=== PATIENT | female | born 1975 | race Caucasian/White ===

== ENCOUNTER → 2022-06-13 | Outpatient (CLI) | payer MEDICAID, SELFPAY ==
--- NOTE | 2022-06-13 11:15 | RAD_ITS ---
INDICATION: CERVICAL DEGENERATION EXAMINATION/TECHNIQUE: X-RAY - XR Spine Cervical 2 or 3 Views COMPARISON: None. FINDINGS: VERTEBRAE: Preserved vertebral body height. No fracture. Straightening of the normal cervical lordosis. C2-3: 3 mm anterolisthesis. Facet arthrosis. C4-5: Marked disc space narrowing. 2 mm retrolisthesis. C6-7: Moderate disc space narrowing. NECK SOFT TISSUES: No prevertebral soft tissue widening. LUNG APICES: Clear. RAD/Cerv Spine 2 or 3 Views IMPRESSION: No demonstrated fracture. Listhesis at C2-3 and C4-5. Mild degenerative changes noted above. Electronically Signed: Mary Walls MD at 23:56 EST Reading Location ID and State: [id number] / Tel , Service support ,
== END | disposition home or self-care (01) ==
LOC: RAD 11:13
PROVIDERS: PCP Student in an Organized Health Care Education/Training Program; Referring Provider Anesthesiology Pain Medicine; Visit Provider Anesthesiology Pain Medicine
DX: M50.30 Other cervical disc degeneration, unspecified cervical region (principal)
CPT/HCPCS: 72040

== ENCOUNTER → 2022-09-05 | Outpatient (CLI) | payer OTHER, MEDICAID, SELFPAY ==
--- NOTE | 2022-09-05 12:33 | US_ITS ---
INDICATION: LOW TSH LEVEL EXAMINATION: Ultrasound US Thyroid (eg thyroid, parathyroid, parotid) TECHNIQUE: Agosto scale and color doppler imaging was performed of the thyroid gland. COMPARISON: None. FINDINGS: RIGHT THYROID LOBE: 5.0 x 2.0 x 2.1 cm. Homogeneous echotexture with normal vascularity. [Within the upper/mid pole there is a 1.3 x 1.0 x 0.9 cm complex nodule with internal vascularity and no apparent microcalcifications. There is an additional complex nodule within the midpole measuring 1.2 x 0.8 x 0.9 cm with minimal peripheral vascularity. There is a 1.2 x 0.6 x 1.0 cm complex nodule within the right lobe as well with minimal internal vascularity. LEFT THYROID LOBE: 4.0 x 1.9 x 2.0 cm. Homogeneous echotexture with normal vascularity. [There is a solid 2.3 x 1.7 x 1.9 cm nodule with internal vascularity. ISTHMUS: 0.38 cm. No thyroid nodules are present. US/Thyroid IMPRESSION: Bilateral nodules measuring up to 2.3 x 1.7 x 1.9 cm on the left. Electronically Signed: Payal Jorgensen MD at 13:37 EST ,
== END | disposition home or self-care (01) ==
LOC: US 12:32
PROVIDERS: PCP Student in an Organized Health Care Education/Training Program; Referring Provider Student in an Organized Health Care Education/Training Program; Visit Provider Student in an Organized Health Care Education/Training Program
DX: R79.89 Other specified abnormal findings of blood chemistry (principal)
CPT/HCPCS: 76536

== ENCOUNTER → 2022-10-18 | Outpatient (CLI) | payer OTHER, MEDICAID, SELFPAY ==
--- NOTE | 2022-10-18 | FLU_PTH ---
PATIENT: KIMBERLY STEPHENS LOC: [facility] U#:[id number] AGE/SX: 47/F ROOM: RE10/18/[address]: Dr. Hesham Holloway MD : 1975 BED: DIS: 10/18/2022 SPEC #: [id number] RECD: 10/18/22 13:14 STATUS: LEANNE REBenjamin #: [id number] RADHA: 10/18/22 00:[address]: Hesham Holloway DEPT: CYTOLOGY RECD BY: Martín Rubio ENTERED: 10/18/22 13:15 SP TYPE: Fluid OTHR DR: Dr. Jai Posada, DO Tissues: A - THORACIC FLUID B - THORACIC FLUID Procedures: Special Stain Group II Surgery Specimen Level IV Cytospin Fluid HEADER OPERATION: Fine needle aspiration left thyroid PRE-OP DIAGNOSIS: Abnormal thyroid ultrasound TISSUE SUBMITTED: A ? Left thyroid nodule fluid, B ? Left thyroid nodule slides x12 DIAGNOSIS CYTOLOGY A. Fine needle aspiration, left thyroid lobe nodule fluid (cytospin and cell block): Consistent with benign follicular nodule ([place] Category II). See comment. B. Fine needle aspiration, left thyroid lobe nodule (smears): Consistent with benign follicular nodule ([place] Category II). See comment. AM:awilda 10/19/2022 COMMENT A & B. The [place] System for thyroid diagnostic categorization was used in the evaluation of this case. The specimen is adequate for evaluation. CYTOLOGY STUDY Slides are reviewed. CYTOLOGY GROSS A - Received is 30 ml of dark brown cloudy fluid labeled with the patient's name and and designated per the requisition as left thyroid. Submitted for cytology preparation including cell block. B - Received are 12 smears labeled with the patient's name and designated per the requisition as left thyroid. Submitted for staining. / awilda 10/18/2022 TC:5 CPT: 88504 x2, 60513
== END | disposition home or self-care (01) ==
LOC: LABSPEC 12:31
PROVIDERS: PCP Student in an Organized Health Care Education/Training Program; Referring Provider Surgery; Visit Provider Surgery
DX: R94.6 Abnormal results of thyroid function studies (principal)
CPT/HCPCS: 88108; 88305; 88313

== ENCOUNTER 2023-04-13 07:15 | Day surgery (SDC) | payer OTHER, MEDICAID, SELFPAY ==
--- NOTE | 2023-04-13 | GASB_PTH ---
PATIENT: KIMBERLY STEPHENS LOC: [facility] U#:[id number] AGE/SX: 48/F ROOM: RE04/13/[address]: Dr. Saw Bruno MD : 1975 BED: DIS: 04/13/2023 SPEC #: [id number] RECD: 04/13/23 14:46 STATUS: LEANNE JOHNSON #: [id number] RADHA: 04/13/23 00:[address]: Saw Bruno DEPT: SURGICAL PATHOLOGY RECD BY: Martín Rubio ENTERED: 04/14/23 08:50 SP TYPE: Gastric Bx OTHR DR: Dr. Jai Posada DO Tissues: A - Duodenum, NOS B - Gastric mucous membrane C - Stomach, NOS D - Gastric mucous membrane E - Gastric mucous membrane Procedures: Special Stain Group II Surgery Specimen Level IV Alcian Blue/PAS (control) HEADER OPERATION: Colonoscopy, EGD, PH probe placement, biopsy PRE-OP DIAGNOSIS: GERD, screening TISSUE SUBMITTED: A - Duodenal bulb mucosa biopsy, B - Antrum biopsy for H. pylori and path, C - Greater curvature plaque biopsy, D - Gastric body polyp biopsy, E - Z-line biopsy MICROSCOPIC DIAGNOSIS A. Duodenal bulb, biopsy: Fragments of duodenal mucosa with mild Yanet gland hyperplasia. B. Antrum, biopsy: Mild gastritis. See microscopic description and comment. C. Greater curvature plaque, biopsy: Mild gastritis. See microscopic description. D. Gastric body polyp, biopsy: Mild gastritis. See microscopic description. E. Z-line biopsy: Fragments of gastroesophageal mucosa with chronic inflammation. Intestinal metaplasia (goblet cell metaplasia) not identified. See comment. SJ:awilda 04/17/2023 COMMENT B. The results of immunohistochemistry for Helicobacter pylori will be reported separately ([id number]). E. Alcian blue/PAS stain with matched control is used in the evaluation of the specimen. MICROSCOPIC DESCRIPTION Slides are reviewed. B. The specimen shows fragments of gastric mucosa with chronic inflammatory cell infiltrates in the lamina propria consisting of lymphocytes and plasma cells, consistent with mild chronic gastritis. C & D. The specimen shows fragments of gastric mucosa with chronic inflammatory cell infiltrates in the lamina propria consisting of lymphocytes and plasma cells, consistent with mild chronic gastritis. Focal mucosal congestion is also noted. GROSS DESCRIPTION A - Received in fixative is one container labeled with the patient's name and designated duodenal bulb mucosal biopsy. The specimen consists of multiple irregular fragments of light galvan soft tissue that in aggregate measure 0.3 x 0.3 x 0.1 cm. The specimen is totally submitted in one cassette. B - Received in fixative is one container labeled with the patient's name and designated antrum biopsy. The specimen consists of two irregular fragments of light galvan soft tissue that in aggregate measure 0.6 x 0.3 x 0.1 cm. The specimen is totally submitted in one cassette. C - Received in fixative is one container labeled with the patient's name and designated greater curvature plaque biopsy. The specimen consists of two irregular fragments of light galvan soft tissue that in aggregate measure 0.5 x 0.3 x 0.1 cm. The specimen is totally submitted in one cassette. D - Received in fixative is one container labeled with the patient's name and designated gastric body polyp. The specimen consists of two irregular fragments of light galvan soft tissue that in aggregate measure 0.8 x 0.3 x 0.1 cm. The specimen is totally submitted in one cassette. E - Received in fixative is one container labeled with the patient's name and designated Z-line biopsy. The specimen consists of two irregular fragments of light galvan soft tissue that in aggregate measure 0.6 x 0.3 x 0.1 cm. The specimen is totally submitted in one cassette. / SJ:rg 04/14/2023 :3 [facility]: [id number] x5, [id number]
[2023-04-13 07:45] VITALS: BP 130/78; PULSE 85; RESP 16; TEMP 36.8; O2SAT 99; BMI 27.9
[2023-04-13] MEDS: Lactated Ringers 1,000 ML 15 ML IV (07:47)
--- NOTE | 2023-04-13 08:30 | IMM_PTH ---
PATIENT: KIMBERLY STEPHENS LOC: [facility] U#:[id number] AGE/SX: 48/F ROOM: RE04/13/[address]: Dr. Saw Bruno MD : 1975 BED: DIS: 04/13/2023 SPEC #: [id number] RECD: 04/14/23 14:07 STATUS: LEANNE REBenjamin #: [id number] RADHA: 04/13/23 08:[address]: Saw Bruno DEPT: IMMUNOHISTOCHEMISTRY RECD BY: Adri Mullins ENTERED: 04/14/23 14:07 SP TYPE: IMMUNO OTHR DR: Dr. Jai Posada DO Tissues: B - Stomach, NOS Procedures: H Pylori (initial) PHYSICIAN & INSTITUTION [place] [id number] SPECIMEN INFORMATION: Tissue Source: B - Antrum biopsy Clinical Info: Screening, GERD Specimen Number: [id number] CPT code: 37676 METHODOLOGY: Deparaffinized sections of prefer/formalin-fixed tissue or PAP/DQ stained slides are incubated with monoclonal/polyclonal antibodies/oligonucleotide probes. Localization is made via biotin free immunoperoxidase method. Appropriate controls are performed and reacted as expected. Results on target cell population are indicated in the following table: RESULTS: ANTIBODY / CLONE RESULT Block B H Pylori (polyclonal) negative These tests were developed and their performance characteristics determined by [facility]. They may not have been cleared or approved by the U.S. Food and Drug Administration. The FDA has determined that such clearance or approval is not necessary. The above immunohistochemical/dualISH markers are ordered and reviewed by the Pathologist. INTERPRETATION: B. Antrum, biopsy: Negative for Helicobacter pylori organisms. SJ:awilda 04/17/2023
--- NOTE | 2023-04-13 09:09 | HP.PCM_ITS ---
History and Physical Date of Admission: 04/13/23 Date of Service: 02/21/23 MR#: [id number] Acct: [id number] Name: KIMBERLY BENJAMIN Rep #: [id number] : 1975 Provider: Dr. Saw Bruno MD Age/Sex: 47/F Location: [facility] Status: Signed Intake Vital Signs 02/21/2310:00 Height 5 ft 3 in Weight: 162 lb BMI 28.7 BP 145/79 H Blood Pressure Location Rt brachial Position Sitting Respiration 18 Pulse 74 Pulse Source Monitor Pulse Oximetry (%) 98 Oxygen Delivery Method room air Intake Visit Reasons: ACID REFLUX Chief Complaint: acid reflux Allergies Seasonal Allergies: Uncoded Allergy (Mild, Verified 02/21/23 10:03) SOB Medications ascorbate calcium (vitamin C) 500 mg tablet 500 mg PO DAILY 02/21/23 [History Confirmed 02/21/23] cinnamon bark 500 mg capsule (Cinnamon) 500 mg PO DAILY 02/21/23 [History Confirmed 02/21/23] cyclobenzaprine 10 mg tablet 10 mg PO TID 02/21/23 [History Confirmed 02/21/23] famotidine 20 mg tablet (Pepcid) 20 mg PO DAILY 02/21/23 [History Confirmed 02/21/23] furosemide 20 mg tablet (Lasix) 20 mg PO BID 02/21/23 [History Confirmed 02/21/23] golimumab 50 mg/0.5 mL subcutaneous pen injector (Simponi) 50 mg subcut QMONTH 02/21/23 [History Confirmed 02/21/23] hydrochlorothiazide 12.5 mg tablet 12.5 mg PO BID 02/21/23 [History Confirmed 02/21/23] hydroxychloroquine 200 mg tablet (Plaquenil) 200 mg PO DAILY 02/21/23 [History Confirmed 02/21/23] ipratropium 0.5 mg-albuterol 3 mg (2.5 mg base)/3 mL nebulization soln 3 ml inhalation 6XD 02/21/23 [History Confirmed 02/21/23] leflunomide 20 mg tablet (Arava) 20 mg PO DAILY 02/21/23 [History Confirmed 02/21/23] losartan 50 mg tablet 50 mg PO BID 02/21/23 [History Confirmed 02/21/23] meloxicam 15 mg tablet 15 mg PO DAILY 02/21/23 [History Confirmed 02/21/23] metoprolol succinate 100 mg tablet,extended release 24 hr (Toprol XL) 100 mg PO DAILY 02/21/23 [History Confirmed 02/21/23] mometasone-formoterol HFA 200 mcg-5 mcg/actuation aerosol inhaler (Dulera) 2 puff inhalation BID 02/21/23 [History Confirmed 02/21/23] montelukast 10 mg tablet (Singulair) 10 mg PO DAILY 02/21/23 [History Confirmed 02/21/23] pantoprazole 40 mg tablet,delayed release (Protonix) 40 mg PO DAILY 02/21/23 [History Confirmed 02/21/23] potassium chloride 10 mEq capsule,extended release 10 meq PO DAILY 02/21/23 [History Confirmed 02/21/23] pseudoephedrine-guaifenesin ER 60 mg-600 mg tablet,extend release 12hr (Mucinex D) 1 tab PO BID PRN 02/21/23 [History Confirmed 02/21/23] sucralfate 1 gram tablet (Carafate) 1 g PO QACHS 02/21/23 [History Confirmed 02/21/23] PFSH Medical History (Updated 02/21/23 @ 13:[address] Saw Bruno MD) Acid reflux Asthma Physical exam, pre-employment Post hysterectomy menopause Surgical History (Updated 02/21/23 @ 10:00 by Jessa Dwyer) History of appendectomy Total knee replacement status Social History (Updated 02/21/23 @ 10:00 by Jessa Dwyer) Smoking Status: Current every day smoker HPI HPI HPI: Patient is a 47-year-old female who presents for evaluation of disturbing/intractable reflux symptoms. They are referred for surgical consultation from Mrs. Ethel Arthur NP. Patient states that her symptoms are particularly troubling at night. She states initially she was able to get relief with taking a proton pump inhibitor, but her symptoms progressed significantly following a COVID infection last February and she has not been able to get the same relief despite taking Protonix 40 mg twice daily. And although she states her symptoms are primarily at night, she does notice some few breakthrough episodes during the daytime. Associated with this reflux?which she describes as a foul taste on awakening occasional aspiration events that awaken her out of sleep, she notes some associated swallowing difficulty, bloating, nausea, and diarrhea. Ms. Benjamin swallowing difficulty as described in relation to food and drink alike and is sporadic in its onset as well as nonprogressive. She reports that her bloating, nausea, and diarrhea all accompany her reflux episodes and she describes her diarrhea as fiery. When she has these episodes she will take Maalox, Pepcid, and Carafate up to 4 times a day without significant relief. In addition to these medications, Ms. Benjamin has been briefed on lifestyle changes to consider to reduce her symptoms and has made many of these changes. She discusses a 90 pound intentional weight loss over the last 1.5 years that she has achieved through working with a workplace trainer and assessor and counting macros. She also reports that she sleeps propped up. She does not routinely ingest caffeine, but occasionally will have some chocolate. She has cut out all spicy foods. She does admit to having unusual waking hours and oftentimes eats within 30 minutes of bedtime because of her work schedule. Patient reports a prior work-up through the [facility] for this issue inclusive of possibly 2 prior swallow studies and an EGD in 2016 that identified a hiatal hernia. Ms. Benjamin states regarding the swallow study that she was told there was an unusual retention of food in her stomach so this was followed up with a second test (gastric emptying?) That was read as normal. Ms. Benjamin states that she has always declined offers for colonoscopies in the past because she is reluctant to undergo procedures after having a sedation issue during a tonsil procedure as a child. Ms. Benjamin reports that her bowels move regularly with a frequency of 3-4 times daily. She does not regularly experience constipation or diarrhea. She denies any bloody or dark stools. She does confirm a history of hemorrhoids which began with the of her son. She notes that they seldom flare and usually these flares were associated with a soreness. As a part of patient's counting macros and dietary changes, she takes a substantial amount of fiber with her daily diet but does not supplement her diet. She denies any family history of inflammatory bowel disease, diverticulitis, or colon cancer. ROS General General: No weight change, appetite, fatigue, colon cancer, breast cancer or weakness HEENT HEENT: Yes difficulty swallowing; No eye injury, eye surgery, swollen glands or hoarseness Endo Endocrine: No thyroid disease, diabetes mellitus, thyroid cancer, Hair loss, heat intolerance or cold intolerance Skin Skin: No rash or changing moles Breast Breast: No left breast lump, right breast lump, nipple discharge, breast pain, abnormal mammogram, abnormal US or breast enlargement Musc Musculoskeletal: Yes back problems, arthritis and rheumatoid arthritis; No gout or joint pain Cardio Cardiovascular: Yes high blood pressure; No murmur, pacemaker, heart disease, atrial fibrillation, heart attack, heart stent, palpitations, shortness of breat with exertion or chest pain Psych Psychiatric: No depression, anxiety or hearing voices Resp Respiratory: No shortness of breath, No sleep apnea, Yes cough, No COPD, Yes asthma, No emphysema and No wheezing Gastro Gastrointestinal: No abdominal pain, Yes nausea or vomiting, Yes diarrhea, No constipation, No blood in stool, Yes acid reflux, Yes hemorrhoids, No ulcers, No gallbladder problem and No black,tarry stools Devante Hematologic: No blood thinners, No blood disorders, No bleeding, No anemia and No blood clots Neuro Neurologic: No system reviewed and no additional complaints, except as documented, No as per HPI, No abnormal gait, No abnormal hearing, No abnormal movements, No abnormal speech, No behavioral changes, No burning sensations, No confusion, No convulsions, No disequilibrium, No dizziness, No localized weakness, No frequent falls, No headache(s), No lack of coordination, No loss of vision, No memory loss, Yes numbness, No other visual disturbances, No radicular pain, No restless legs, No sensory deficit, No syncope, Yes tingling, No tremor(s), No weakness and No other Exam Const General: cooperative, comfortable, no acute distress and well developed Resp Effort & Inspection: normal respiratory effort Auscultation: no rales, no rhonchi and no wheezes Cardio Rate: regular rate Rhythm: regular rhythm Heart Sounds: click (Midsystolic) GI Other: No significant scarring, nondistended, soft, nontender to palpation x4 quadrants. No palpable hernia. Assessment and Plan Assessment and Plan (1) Acid reflux: Status: Chronic Comment: This is a 47-year-old female who makes her for surgical consultation related to intractable reflux symptoms that began not responding to medical therapy 11 months ago with a COVID diagnosis. Patient reports prior work-up with swallow studies and EGD done through [facility], but these results are not immediately available. She states that she is currently using Protonix 40 mg twice daily as well as Pepcid, Maalox, and Carafate when she experiences episodes of reflux. Overall she has worked to modify her behavioral factors and even lost 90 pounds in the last 1.5 years through intentional weight loss. Still, I have identified that she is eating and retiring to bed far too soon then would be recommended (within half hour). I have asked her to work on this issue, and in the meantime we will begin obtaining her records from the outside system. I would like to plan for repeat EGD with pH probe placement. Additionally, patient has never had prior colonoscopy so we will look to perform this concurrently. Plan: EGD with pH probe placement. Patient will require holding of her PPI in anticipation of this procedure. Patient informed that she will require a hire car driver the day of the procedure. (2) Screening for colon cancer: Status: Acute Comment: Patient at average risk for colon cancer who is 47 and never had prior colonoscopy. Planning for repeat EGD and given patient's need for screening colonoscopy, have advised her to pursue this concurrently. Patient is initially reluctant, but ultimately accepts this recommendation. We will plan for standard split prep. Plan: Plan will be to complete colonoscopy (and EGD) on first mutually agreeable date under local MAC. Pre-procedure prep discussed and paper instructions provided. Patient is also made aware that she will need to have a hire car driver with her the day of the procedure. I have examined the patient the following changes are noted: Patient reports that she has had actually less reflux since going off of her Protonix in anticipation of today's pH probe placement. She also reports some presyncope related to her bowel prep, but states that she feels better today and believes that that was due to hypoglycemia as her symptoms resolved quickly with ingestion of a popsicle. She otherwise denies changes. She has no further questions. Therefore we will proceed with EGD and colonoscopy as discussed above.
[2023-04-13 10:10] VITALS: BP 130/78; BP 99/62; PULSE 97; RESP 18; TEMP 36.3; O2SAT 97
[2023-04-13 10:15] VITALS: BP 107/69; BP 130/78; PULSE 96; RESP 18; O2SAT 97
[2023-04-13 10:20] VITALS: BP 117/68; BP 130/78; PULSE 85; RESP 18; O2SAT 96
--- NOTE | 2023-04-13 10:21 | OP.CCLET_ITS ---
04/13/2023 Jai Posada [address] [place] [address] Re : Upper GI endoscopy procedure for Michelle Benjamin Dear Dr. Posada This procedure was performed on March. My impressions and recommendations are as follows: Impressions : - Friable duodenal mucosa. Biopsied. - Erythematous mucosa in the antrum. Biopsied. - A few spots with no stigmata of recent bleeding in the stomach. Biopsied. - A few gastric polyps. Biopsied. - Gastroesophageal flap valve classified as Hill Grade IV (no fold, wide open lumen, hiatal hernia present). No specimens collected. - 2 cm hiatal hernia. No specimens collected. - Z-line regular, 35 cm from the incisors. Biopsied. - The examination was otherwise normal. - Normal mucosa was found in the entire esophagus. - The CARRASCO pH capsule was deployed. Recommendations : - Discharge patient to home (via wheelchair). - Resume previous diet today. - Await pathology results. - Telephone my office for pathology results in 1 week. - Continue present medications. My findings are described in the full procedure note, which is enclosed. If I can be of further assistance, please feel free to contact me at Doctor phone number(s): , Work: . Sincerely, Saw Bruno MD 04/13/2023 10:21:07 AM This report has been signed electronically.
--- NOTE | 2023-04-13 10:21 | OP.EGD_ITS ---
Patient Name: Michelle Benjamin Procedure Date: 04/13/2023 8:58 AM Date of : 1975 Age: 48 Procedure: Upper GI endoscopy Indications: Dysphagia, Heartburn, Esophageal reflux symptoms that persist despite appropriate therapy Providers: Saw Bruno MD Referring MD: Jai Posada Medicines: See the Anesthesia note for documentation of the administered medications Patient Profile: Refer to note in patient chart for documentation of history and physical. Complications: No immediate complications. Estimated blood loss: Minimal. Procedure: Pre-Anesthesia Assessment: - The heart rate, respiratory rate, oxygen saturations, blood pressure, adequacy of pulmonary ventilation, and response to care were monitored throughout the procedure. After obtaining informed consent, the endoscope was passed under direct vision. Throughout the procedure, the patient's blood pressure, pulse, and oxygen saturations were monitored continuously. The Endoscope was introduced through the mouth, and advanced to the second part of duodenum. The upper GI endoscopy was somewhat difficult due to the patient's discomfort during the procedure. Successful completion of the procedure was aided by increasing the dose of sedation medication. The patient tolerated the procedure well. Scope In: 9:14:11 AM Scope Out: 9:40:15 AM Total Procedure Duration Time 0 hours 26 minutes 4 seconds Findings: Localized mildly friable mucosa without active bleeding was found in the duodenal bulb. Biopsies were taken with a cold forceps for histology. Estimated blood loss was minimal. Diffuse mildly erythematous mucosa without bleeding was found in the gastric antrum. Estimated blood loss was minimal. Biopsies were taken with a cold forceps for histology. A few localized spots with no stigmata of recent bleeding were found on the greater curvature of the stomach and in the stomach. Biopsies were taken with a cold forceps for histology. Estimated blood loss was minimal. A few 3 mm semi-sessile polyps with no bleeding and no stigmata of recent bleeding were found in the gastric body. Biopsies were taken with a cold forceps for histology. Estimated blood loss was minimal. The gastroesophageal flap valve was visualized endoscopically and classified as Hill Grade IV (no fold, wide open lumen, hiatal hernia present). No biopsies or other specimens were collected for this exam. A 2 cm hiatal hernia was present. No biopsies or other specimens were collected for this exam. The Z-line was regular and was found 35 cm from the incisors. Biopsies were taken with a cold forceps for histology. Estimated blood loss was minimal. The exam was otherwise without abnormality. Normal mucosa was found in the entire esophagus. The CARRASCO capsule with delivery system was introduced through the mouth and advanced into the esophagus, such that the CARRASCO pH capsule was positioned 29 cm from the incisors, which was 6 cm proximal to the GE junction. The CARRASCO pH capsule was then deployed and attached to the esophageal mucosa. The delivery system was then withdrawn. Endoscopy was utilized for probe placement and diagnostic evaluation. Impression: - Friable duodenal mucosa. Biopsied. - Erythematous mucosa in the antrum. Biopsied. - A few spots with no stigmata of recent bleeding in the stomach. Biopsied. - A few gastric polyps. Biopsied. - Gastroesophageal flap valve classified as Hill Grade IV (no fold, wide open lumen, hiatal hernia present). No specimens collected. - 2 cm hiatal hernia. No specimens collected. - Z-line regular, 35 cm from the incisors. Biopsied. - The examination was otherwise normal. - Normal mucosa was found in the entire esophagus. - The CARRASCO pH capsule was deployed. Recommendation: - Discharge patient to home (via wheelchair). - Resume previous diet today. - Await pathology results. - Telephone my office for pathology results in 1 week. - Continue present medications. Procedure Code(s): --- Professional --- 15592, Esophagogastroduodenoscopy, flexible, transoral; with biopsy, single or multiple Diagnosis Code(s): --- Professional --- K31.89, Other diseases of stomach and duodenum K31.7, Polyp of stomach and duodenum K44.9, Diaphragmatic hernia without obstruction or gangrene R13.10, Dysphagia, unspecified R12, Heartburn K21.9, Gastro-esophageal reflux disease without esophagitis CPT copyright 2021 [employer]. All rights reserved. The codes documented in this report are preliminary and upon dry cell sealer review may be revised to meet current compliance requirements. Saw Bruno MD 04/13/2023 10:21:07 AM This report has been signed electronically. Number of Addenda: 0 Note Initiated On: 04/13/2023 8:58 AM
[2023-04-13 10:25] VITALS: BP 109/64; BP 130/78; PULSE 84; RESP 18; TEMP 36.1; O2SAT 96
--- NOTE | 2023-04-13 10:28 | OP.COLON_ITS ---
Patient Name: Michelle Benjamin Procedure Date: 04/13/2023 9:40 AM Date of : 1975 Age: 48 Procedure: Colonoscopy Indications: Screening for colorectal malignant neoplasm Providers: Saw Bruno MD Referring MD: Jai Posada Medicines: See the Anesthesia note for documentation of the administered medications Patient Profile: Refer to note in patient chart for documentation of history and physical. Last Colonoscopy: none. The patient's first colonoscopy is today. Complications: No immediate complications. Estimated blood loss: None. Procedure: Pre-Anesthesia Assessment: - The heart rate, respiratory rate, oxygen saturations, blood pressure, adequacy of pulmonary ventilation, and response to care were monitored throughout the procedure. After I obtained informed consent, the scope was passed under direct vision. Throughout the procedure, the patient's blood pressure, pulse, and oxygen saturations were monitored continuously. The colonoscope was introduced through the anus and advanced to the cecum, identified by appendiceal orifice and ileocecal valve. The colonoscopy was performed without difficulty. The patient tolerated the procedure well. The quality of the bowel preparation was adequate to identify polyps greater than 5 mm in size. Scope In: 9:44:30 AM Scope Withdrawal Time 0 hours 11 minutes 3 seconds Scope Out: 10:05:10 AM Total Procedure Duration Time 0 hours 20 minutes 40 seconds Findings: Skin tags were found on perianal exam. A few small-mouthed diverticula were found in the sigmoid colon. The retroflexed view of the distal rectum and anal verge was normal and showed no anal or rectal abnormalities. Impression: - Perianal skin tags found on perianal exam. - Diverticulosis in the sigmoid colon. - The distal rectum and anal verge are normal on retroflexion view. - No specimens collected. Recommendation: - Discharge patient to home (via wheelchair). - High fiber diet today. - Continue present medications. - Continue present medications. - Repeat colonoscopy in 10 years for screening purposes. - Telephone my office for study results in 1 week. Procedure Code(s): --- Professional --- G0121, Colorectal cancer screening; colonoscopy on individual not meeting criteria for high risk Diagnosis Code(s): --- Professional --- Z12.11, Encounter for screening for malignant neoplasm of colon K64.4, Residual hemorrhoidal skin tags K57.30, Diverticulosis of large intestine without perforation or abscess without bleeding CPT copyright 2021 [employer]. All rights reserved. The codes documented in this report are preliminary and upon fish stringer assembler review may be revised to meet current compliance requirements. Saw Bruno MD 04/13/2023 10:27:47 AM This report has been signed electronically. Number of Addenda: 0 Note Initiated On: 04/13/2023 9:40 AM
--- NOTE | 2023-04-13 10:28 | OP.CCLET_ITS ---
04/13/2023 Jai Posada [address] [place] [address] Re : Colonoscopy procedure for Michelle Benjamin Dear Dr. Posada This procedure was performed on March. My impressions and recommendations are as follows: Impressions : - Perianal skin tags found on perianal exam. - Diverticulosis in the sigmoid colon. - The distal rectum and anal verge are normal on retroflexion view. - No specimens collected. Recommendations : - Discharge patient to home (via wheelchair). - High fiber diet today. - Continue present medications. - Continue present medications. - Repeat colonoscopy in 10 years for screening purposes. - Telephone my office for study results in 1 week. My findings are described in the full procedure note, which is enclosed. If I can be of further assistance, please feel free to contact me at Doctor phone number(s): , Work: . Sincerely, Saw Bruno MD 04/13/2023 10:27:47 AM This report has been signed electronically.
[2023-04-13 10:36] VITALS: BP 130/78
== END 2023-04-13 10:54 | disposition home or self-care (01) ==
LOC: EN 07:17 → AC 07:19
PROVIDERS: PCP Student in an Organized Health Care Education/Training Program; Referring Provider Student in an Organized Health Care Education/Training Program; Visit Provider Surgery
PROC: 0DJD8ZZ Inspection of Lower Intestinal Tract, Via Natural or Artificial Opening Endoscopic (ICD-10-PCS; CPT 45378; principal; 2023-04-13 08:25)
DX: Z12.11 Encounter for screening for malignant neoplasm of colon (principal); K44.9 Diaphragmatic hernia without obstruction or gangrene; K57.30 Diverticulosis of large intestine without perforation or abscess without bleeding; K21.9 Gastro-esophageal reflux disease without esophagitis; K64.4 Residual hemorrhoidal skin tags; F17.200 Nicotine dependence, unspecified, uncomplicated; J45.909 Unspecified asthma, uncomplicated; K29.70 Gastritis, unspecified, without bleeding; K31.89 Other diseases of stomach and duodenum; I10 Essential (primary) hypertension; Z79.899 Other long term (current) drug therapy
CPT/HCPCS: G0121; 43239; 88305; 88313; 88342; J7120; J2405

== ENCOUNTER → 2023-08-11 | Outpatient (CLI) | payer OTHER, SELFPAY ==
--- NOTE | 2023-08-11 08:37 | RAD_ITS ---
STUDY: AIR CONTRAST UPPER GI SERIES and esophagram REASON FOR EXAM: Female, 48 years old. K21.9 - Gastro-esophageal reflux disease without esophagitis FLUOROSCOPY TIME (if supplied): (1 minute and one second) minutes/seconds. 38.48 mGy TECHNIQUE: Double CONTRAST AND AIR CONTRAST FLUOROSCOPIC IMAGES. COMPARISON: None. FINDINGS: The cervical esophagus demonstrates normal motility without aspiration. There is no stricture or extrinsic mass effect. No intraluminal polypoid mass is identified. The thoracic esophagus distends well without stricture or mucosal fold thickening. No mucosal ulcerations are identified. There is no extrinsic mass effect. There are no diverticula. No hiatal hernia or gastroesophageal reflux was identified. The stomach distends well without mucosal fold thickening or mucosal ulceration. There is no intraluminal mass. The duodenal bulb is freely distensible without deformity or ulceration. The duodenal sweep is normal in position and caliber. RAD/Upper GI w/BA Swallow IMPRESSION: Normal air-contrast upper GI and esophageal series. Electronically Signed: Shakir Valles MD at 10:56 EST ,
== END | disposition home or self-care (01) ==
PROVIDERS: PCP Student in an Organized Health Care Education/Training Program; Referring Provider Surgery; Visit Provider Surgery
DX: K21.9 Gastro-esophageal reflux disease without esophagitis (principal); K44.9 Diaphragmatic hernia without obstruction or gangrene
CPT/HCPCS: 74246

== ENCOUNTER → 2023-08-17 | Outpatient (CLI) | payer OTHER, SELFPAY ==
--- NOTE | 2023-08-17 09:57 | NM_ITS ---
CLINICAL: 48-year-old female with history of abdominal bloating and gastroesophageal reflux. SEMI-SOLID PHASE 99m Tc SULFUR COLLOID GASTRIC EMPTYING STUDY COMPARISON: None available FINDINGS: The patient was administered 1.0 mCi of 99m Tc sulfur colloid mixed with oatmeal and consumed per os. Image acquisitions in the anterior-posterior projections were obtained for 60 minutes. There is prompt visualization of the stomach. There is no gastroesophageal reflux identified. The T ? raw data emptying was calculated to be 39.88 minutes, (Normal: 12-56 minutes). NM/Gastric Emptying Study IMPRESSION: 1. NORMAL 99m Tc sulfur colloid semi-solid phase (oatmeal) gastric emptying imaging examination. A. There is normal and preserved semi-solid phase gastric emptying compared to normal controls. (Susan et al, J Nucl Med Tech 38: 186, 2010). Electronically Signed: Rikki Pathak DO at 9:33 EST ,
== END | disposition home or self-care (01) ==
LOC: NM 09:57
PROVIDERS: PCP Student in an Organized Health Care Education/Training Program; Referring Provider Surgery; Visit Provider Surgery
DX: K44.9 Diaphragmatic hernia without obstruction or gangrene (principal)
CPT/HCPCS: 78264; A9541

== ENCOUNTER → 2023-09-08 | Day surgery (SDC) | payer OTHER, SELFPAY ==
[2023-09-08 11:21] VITALS: BP 152/85; PULSE 71; RESP 15; TEMP 36.4; O2SAT 99
== END | disposition home or self-care (01) ==
LOC: EN 11:09
PROVIDERS: Surgery; PCP Student in an Organized Health Care Education/Training Program; Referring Provider Student in an Organized Health Care Education/Training Program; Visit Provider Surgery
PROC: F00ZJWZ Instrumental Swallowing and Oral Function Assessment using Swallowing Equipment (ICD-10-PCS; CPT 43235; principal; 2023-09-08 10:55)
DX: Z00.00 Encounter for general adult medical examination without abnormal findings (principal)
CPT/HCPCS: 91010

== ENCOUNTER 2023-11-17 14:56 | Observation (INO) | payer OTHER, SELFPAY ==
--- NOTE | 2023-11-09 11:58 | EKG12_ITS ---
Test Reason : PRE OP Blood Pressure : / mmHG Vent. Rate : 077 BPM Atrial Rate : 077 BPM P-R Int : 172 ms QRS Dur : 068 ms QT Int : 366 ms P-R-T Axes : 049 072 050 degrees QTc Int : 414 ms Normal sinus rhythm Low voltage QRS BORDERLINE Confirmed by Saw Alba ([id number]), industrial editor ALANNA MASON ([id number]) on 11/10/2023 7:23:10 AM Referred By: Saw Bruno Confirmed By:Saw Alba
[2023-11-09 12:59] LABS: Hematocrit 44.8 % (37-47); Hemoglobin 14.5 g/dL (12.0-15.0); Mean Corp Hgb Conc 32.4 g/dL (32-36); Mean Corpuscular Hgb 30.5 pg (27.0-32.0); Mean Corpuscular Volume 94.3 fL (81-99); Mean Platelet Vol. 8.5 fl (6.2-12.0); Platelet Count 303 K/mm3 (150-450); RBC Distribution Width SD 44.9 fl (35.1-43.9); Red Blood Count 4.75 M/mm3 (4.2-5.4); White Blood Count 11.2 K/mm3 (4.4-11.0)
[2023-11-17] VITALS (13 sets, daily range): BP systolic 102–139; BP diastolic 57–88; PULSE 66–93; RESP 15–16; TEMP 36.4–37.3; O2SAT 2–99
[2023-11-17] MEDS: Lactated Ringers 1,000 ML 15 ML IV (09:42)
--- NOTE | 2023-11-17 10:48 | HP.PCM_ITS ---
History and Physical Date of Admission: 11/17/23 Date of Service: 10/13/23 MR#: [id number] Acct: [id number] Name: KIMBERLY BENJAMIN Rep #: [id number] : 1975 Provider: Dr. Saw Bruno MD Age/Sex: 48/F Location: [facility] Status: Signed Intake Vital Signs 07/18/2312:54 10/12/2413:06 Height 5 ft 3 in 5 ft 3 in Weight: 167 lb 4 oz BMI 29.6 BP 140/82 H Blood Pressure Location Rt brachial Position Sitting Respiration 18 Pulse 79 Pulse Source Monitor Temp 98.0 F Temp Source Temporal Pulse Oximetry (%) 99 Oxygen Delivery Method room air Intake Visit Reasons: Update h/p for surgery lab jess Chief Complaint: update h/p for surgery lap jess Outsole Splicer Required: No Accompanied by: Friend Is patient in pain?: No Allergies doxycycline Allergy (Severe, Verified 10/13/23 14:07) AngioedemaSulfa (Sulfonamide Antibiotics) Allergy (Severe, Verified 10/13/23 14:07) AngioedemaSeasonal Allergies: Uncoded Allergy (Mild, Verified 10/13/23 14:07) SOBamoxicillin [From Augmentin] Adverse Reaction (Intermediate, Verified 10/13/23 14:07) Diarrheaclavulanic acid [From Augmentin] Adverse Reaction (Intermediate, Verified 10/13/23 14:07) Diarrhea Medications ascorbate calcium (vitamin C) 500 mg tablet 500 mg PO BID 02/21/23 [History Confirmed 10/13/23] cinnamon bark 500 mg capsule (Cinnamon) 500 mg PO DAILY 02/21/23 [History Confirmed 10/13/23] cyclobenzaprine 10 mg tablet 10 mg PO TID PRN muscle spasm 02/21/23 [History Confirmed 10/13/23] famotidine 20 mg tablet (Pepcid) 20 mg PO DAILY 02/21/23 [History Confirmed 10/13/23] furosemide 20 mg tablet (Lasix) 20 mg PO BID 02/21/23 [History Confirmed 10/13/23] golimumab 50 mg/0.5 mL subcutaneous pen injector (Simponi) 50 mg subcut QMONTH 02/21/23 [History Confirmed 10/13/23] hydroxychloroquine 200 mg tablet (Plaquenil) 200 mg PO QHS 02/21/23 [History Confirmed 10/13/23] ipratropium 0.5 mg-albuterol 3 mg (2.5 mg base)/3 mL nebulization soln 3 ml inhalation PRN PRN shortness of breath 02/21/23 [History Confirmed 10/13/23] leflunomide 20 mg tablet (Arava) 20 mg PO DAILY 02/21/23 [History Confirmed 10/13/23] losartan 50 mg tablet 50 mg PO BID 02/21/23 [History Confirmed 10/13/23] meloxicam 15 mg tablet 15 mg PO DAILY 02/21/23 [History Confirmed 10/13/23] metoprolol succinate 100 mg tablet,extended release 24 hr (Toprol XL) 100 mg PO QHS 02/21/23 [History Confirmed 10/13/23] montelukast 10 mg tablet (Singulair) 10 mg PO DAILY 02/21/23 [History Confirmed 10/13/23] potassium chloride 10 mEq capsule,extended release 10 meq PO BID 02/21/23 [History Confirmed 10/13/23] pseudoephedrine-guaifenesin ER 60 mg-600 mg tablet,extend release 12hr (Mucinex D) 1 tab PO BID 02/21/23 [History Confirmed 10/13/23] sucralfate 1 gram tablet (Carafate) 1 g PO QACHS 02/21/23 [History Confirmed 10/13/23] albuterol sulfate 90 mcg/actuation aerosol inhaler 1 inh inhalation PRN ALLERGIES 04/10/23 [History Confirmed 10/13/23] amlodipine 10 mg tablet 10 mg PO DAILY 04/10/23 [History Confirmed 10/13/23] azelastine 137 mcg (0.1 %) nasal spray aerosol 1 spray intranasal BID 04/10/23 [History Confirmed 10/13/23] budesonide-formoterol HFA 160 mcg-4.5 mcg/actuation aerosol inhaler 2 inh inhalation BID 04/10/23 [History Confirmed 10/13/23] cetirizine 10 mg tablet 10 mg PO BID 04/10/23 [History Confirmed 10/13/23] umeclidinium 62.5 mcg/actuation blister powder for inhalation (Incruse Ellipta) 1 inh inhalation DAILY 04/10/23 [History Confirmed 10/13/23] lansoprazole 15 mg capsule,delayed release 15 mg PO DAILY #60 caps 10/12/23 [Rx Confirmed 10/13/23] PFSH Medical History Acid reflux Alcohol use Arthritis Asthma Back pain Chronic cough Contact with or exposure to other viral diseases Fatty liver Gastric reflux History of edema History of hiatal hernia History of steroid therapy History of stress test Hypertension MVP (mitral valve prolapse) Physical exam, pre-employment Post hysterectomy menopause Rheumatoid arthritis Smoker URI (upper respiratory infection) Wears glasses Surgical History History of esophagogastroduodenoscopy (EGD) History of tonsillectomy Hx laparoscopic cholecystectomy Hx of hysterectomy Hx of tubal ligation Total knee replacement status Social History (Updated 10/13/23 @ 14:06 by Itzel Light LPN) Smoking Status: Current every day smoker tobacco type: cigarettes alcohol intake: current alcohol intake frequency: holidays/special occasions only substance use type: does not use HPI HPI HPI: Patient is a 48-year-old female who presents for follow-up of intractable reflux symptoms. She presents today with her friend and support person. She shares that she has really had significant improvement since taking her lansoprazole regularly (she also notes that she is still taking famotidine twice daily). However, she experiences near nightly regurgitation despite both of these medications. She is eager to be scheduled for surgery and fears that she may chicken out. Below is recapitulated from patient's prior visit for ease of review: She once again presents with her friend for review of interim testing including upper GI study with barium esophagram and gastric emptying. She shares that she continues to have reflux every night and this is despite trying to start each night propped up on pillows. She denies any heartburn, but does share that she continues to ache on the left side. She previously underwent EGD with me on 04/13/2023 after initial surgical c onsultation on this issue 02/21/2023. At that time she was identified as having a hiatal hernia. She reports today with a friend and together they relate that symptoms persist. Specifically, Mrs. Benjamin shares that she was sleeping upright 1 night when suddenly she felt something come out from her mouth and thereafter was able to witness acid coming out of her mouth. She also shares that she is concerned for some aspiration as she will taste the acid in her mouth and has developed an intermittent cough. She is happy to report that heartburn is gone. She is trying to minimize her risk for episodes by avoiding caffeine, spicy foods, and ensuring that there is at least 3 hours between mealtime and bedtime. When discussing patient's prior workup, she shares that 2016 was the last time she underwent an upper GI series. She also attempted to relate the circumstances under which she was told she may have delayed gastric emptying and ultimately is able to conclude that she underwent a study for which she was supposed to fast, however, she was found to have gastric contents despite not eating for the preceding 24 hours. She does not believe she ever underwent formal gastric emptying studies. Patient is a 47-year-old female who presents for evaluation of disturbing/intractable reflux symptoms. They are referred for surgical consultation from Mrs. Ethel Arthur NP. Patient states that her symptoms are particularly troubling at night. She states initially she was able to get relief with taking a proton pump inhibitor, but her symptoms progressed significantly following a COVID infection last February and she has not been able to get the same relief despite taking Protonix 40 mg twice daily. And although she states her symptoms are primarily at night, she does notice some few breakthrough episodes during the daytime. Associated with this reflux?which she describes as a foul taste on awakening occasional aspiration events that awaken her out of sleep, she notes some associated swallowing difficulty, bloating, nausea, and diarrhea. Ms. Benjamin swallowing difficulty as described in relation to food and drink alike and is sporadic in its onset as well as nonprogressive. She reports that her bloating, nausea, and diarrhea all accompany her reflux episodes and she describes her diarrhea as fiery. When she has these episodes she will take Maalox, Pepcid, and Carafate up to 4 times a day without significant relief. In addition to these medications, Ms. Benjamin has been briefed on lifestyle changes to consider to reduce her symptoms and has made many of these changes. She discusses a 90 pound intentional weight loss over the last 1.5 years that she has achieved through working with a epic trainer and counting macros. She also reports that she sleeps propped up. She does not routinely ingest caffeine, but occasionally will have some chocolate. She has cut out all spicy foods. She does admit to having unusual waking hours and oftentimes eats within 30 minutes of bedtime because of her work schedule. Patient reports a prior work-up through the [facility] for this issue inclusive of possibly 2 prior swallow studies and an EGD in 2016 that identified a hiatal hernia. Ms. Benjamin states regarding the swallow study that she was told there was an unusual retention of food in her stomach so this was followed up with a second test (gastric emptying?) That was read as normal. Ms. Benjamin states that she has always declined offers for colonoscopies in the past because she is reluctant to undergo procedures after having a sedation issue during a tonsil procedure as a child. Ms. Benjamin reports that her bowels move regularly with a frequency of 3-4 times daily. She does not regularly experience constipation or diarrhea. She denies any bloody or dark stools. She does confirm a history of hemorrhoids which began with the of her son. She notes that they seldom flare and usually these flares were associated with a soreness. As a part of patient's counting macros and dietary changes, she takes a substantial amount of fiber with her daily diet but does not supplement her diet. She denies any family history of inflammatory bowel disease, diverticulitis, or colon cancer. ROS General General: No weight change, appetite, fatigue, colon cancer, breast cancer or weakness HEENT HEENT: Yes difficulty swallowing; No eye injury, eye surgery, swollen glands or hoarseness Endo Endocrine: No thyroid disease, diabetes mellitus, thyroid cancer, Hair loss, heat intolerance or cold intolerance Skin Skin: No rash or changing moles Breast Breast: No left breast lump, right breast lump, nipple discharge, breast pain, abnormal mammogram, abnormal US or breast enlargement Musc Musculoskeletal: Yes back problems, arthritis and rheumatoid arthritis; No gout or joint pain Cardio Cardiovascular: Yes high blood pressure; No murmur, pacemaker, heart disease, atrial fibrillation, heart attack, heart stent, palpitations, shortness of breat with exertion or chest pain Psych Psychiatric: No depression, anxiety or hearing voices Resp Respiratory: No shortness of breath, No sleep apnea, Yes cough, No COPD, Yes asthma, No emphysema and No wheezing Gastro Gastrointestinal: No abdominal pain, Yes nausea or vomiting, Yes diarrhea, No constipation, No blood in stool, Yes acid reflux, Yes hemorrhoids, No ulcers, No gallbladder problem and No black,tarry stools Devante Hematologic: No blood thinners, No blood disorders, No bleeding, No anemia and No blood clots Neuro Neurologic: No system reviewed and no additional complaints, except as documented, No as per HPI, No abnormal gait, No abnormal hearing, No abnormal movements, No abnormal speech, No behavioral changes, No burning sensations, No confusion, No convulsions, No disequilibrium, No dizziness, No localized weakness, No frequent falls, No headache(s), No lack of coordination, No loss of vision, No memory loss, Yes numbness, No other visual disturbances, No radicular pain, No restless legs, No sensory deficit, No syncope, Yes tingling, No tremor(s), No weakness and No other Exam Const General: cooperative, healthy appearing, comfortable and anxious Orientation: alert, awake and oriented x3 Resp Effort & Inspection: normal respiratory effort GI Other: Tanned, no visible scars, mildly distended, soft, nontender to palpation Assessment and Plan Assessment and Plan (1) Hiatal hernia: Status: Acute (2) Acid reflux: Status: Chronic Comment: This is a 48-year-old female who follows up for evaluation of intractable reflux symptoms. She reports resolution of her heartburn symptoms, but confirms that her reflux symptoms have largely persisted despite transitioning to lansoprazole from pantoprazole. In the interim we did obtain ambulatory pH testing results from her concurrent EGD which showed her DeMeester scores to be significantly above the cutoff of 14.7. I held a nice conversation with patient and her friend regarding the physiology and pathophysiology at play. Hand drawings were used to illustrate the important anatomical differences. At this point, I have shared with Mrs. Benjamin that I would like to both update her upper GI series as this was last performed 6 years ago as well as obtain gastric emptying evaluatio n given her reports of undigested food 24 hours into a fast. I have shared with her the implications of this latter study if found to be abnormal. She has had considerable weight loss to date, but I did discuss with her that 1 option around a dysfunctional stomach may be a consider gastric bypass altogether. At this point Ms. Benjamin wishes to proceed as described and is reluctant to consider gastric bypass. Additionally she confirms that she is still smoking so this would preclude that as a surgical option as well. Today Ms. Benjamin continues to report ongoing difficulty with reflux. We took time to review the results of her upper GI series which did not demonstrate evidence of a hiatal hernia nor reflux but she was quick to recall that a similar study in 2017 had identified both. I also shared with her that her gastric emptying study was within normal limits indicating no concerns for gastroparesis. As above, based on her overall workup and specifically the findings of her EGD and pH probe results I believe she would benefit from antireflux surgery. She states that she did discuss this operation with her PCP who is all for it. They did share that there may be several medication she would have to discontinue (including Simponi and leflunomide). Given this interest, I have shared with Ms. Benjamin that I would request 1 more study with esophageal manometry so that we can know whether she would benefit from a partial or a complete fundoplication. She readily accepted this recommendation and will be scheduled for further study. Given our in-depth conversation sedate, I shared that we may consider proceeding simply with surgical scheduling following these results if favorable. She is in agreement. 10/12: Patient continues with some regurgitation but less frequent reflux. She has completed manometry which shows mildly elevated LES pressures but no evidence of achalasia. Based on this information I am inclined to proceed with a partial fundoplication and discussed this rationale with both patient and her friend. They are in agreement. Additionally I discussed the details of the procedure as well as the postprocedure recovery. Ms. Benjamin is ready to be underway as soon as possible. To this end, we have discussed holding her rheumatologic biologics appropriately. She states that she has not had a recent Simponi infusion but was just administered Arava this week. Therefore, I have advised that we should wait 4 weeks before scheduling surgery and advised against any further administrations. Patient is also informed that she should plan for overnight observation following surgery. Plan: ? Scheduled for laparoscopic hiatal hernia repair with probable toupet fundoplication. Patient to undergo observational stay postoperatively ? Patient asked to continue holding Simponi and hold Arava going forward. We will plan to restart these medications approximately 14 days postoperatively I have examined the patient the following changes are noted: Patient describes a resolving rash of her bilateral lower extremities and then shows this to me. It is flat and there is no itchiness to it. She confirms that she has been off of her biologic medications and I question whether or not this is possibly presenting because of her abstinence from these medications. Either way I find it to be of low risk to proceed with surgery today as I do not believe it represents an infectious etiology or 1 that could impact our plans for laparoscopic partial fundoplication with hiatal hernia repair. The procedure and post procedure expectations were reviewed. Patient nor family have any further questions. Thus we will proceed to the operating room as scheduled.
[2023-11-17] MEDS: Clindamycin 900 MG/50 ML BAG 75 MG IV (10:57)
[2023-11-17] MEDS: Bupivacaine Mpf 0.5% 30 ML VIAL (14:50)
--- NOTE | 2023-11-17 14:53 | OP.PCM_ITS ---
Report of Operation Date of Procedure: 11/17/23 Pre-Operative Diagnosis: Hiatal hernia with refractory reflux Post-Operative Diagnosis: Same Surgery/Procedure Performed:: Laparoscopic hiatal hernia repair with toupee fundoplication Description of Surgical Findings:: ? Small hiatal hernia with otherwise normal upper GI anatomy Surgeon: Saw Bruno disbursing officer: Wendy Xiong disbursing officer: Abel Dey Type of Anesthesia: General/Supplemental Anesthesiologist: Sheldon Muniz Specimen's removed: none Estimated Blood Loss (mL): 15 Description of Procedure: After appropriate identification in the holding, patient was brought to the operating room. There she was positioned supine on the operating room table. She underwent induction with general endotracheal anesthetic. She was positioned in a lithotomy position using yellowfin leg holders and a beanbag. Care was taken to avoid pressure points. A Samuels catheter was then placed with sterile technique. Patient's abdomen was prepped and draped in usual sterile fashion and a formal timeout was conducted to confirm the patient and procedure. Procedure was begun with a Piña entry in the supraumbilical position. With this technique, pneumoperitoneum was established at 15 mmHg and subsequent laparoscopic investigation revealed no inadvertent injury to the viscera below. 3 other trochars were placed in the left upper quadrant approximately a handsbreadth apart so they ultimately resided along bilateral midclavicular lines and the left anterior axillary lines. Lastly a Fabricio liver retractor was placed in the epigastrium also under laparoscopic visualization. This retractor was manipulated to elevate the left lobe of the liver and provide visualization to the diaphragmatic hiatus. Dissection of the hernia sac was begun on the side of the right damián using a laparoscopic harmonic scalpel and carried clockwise around the hiatus. We encountered dense scar tissue along the left damián and therefore elected to perform a bottom up approach by incising the gastrosplenic ligament and carefully dividing the short gastric vessels all the way up to the left damián. Both crura were clearly established and we then performed some limited mediastinal dissection to provide greater esophageal excursion while taking care to identify the anterior and posterior vagi as well as the parietal pleura. Once we had circumferential dissection, a retroesophag eal window was made with blunt dissection and 1/2 inch Mayelin drain was placed about this opening to provide further cephalad traction on the stomach. With this traction we identified a few remaining hernia sac adhesions which were taken down with the use of the LigaSure. Next I performed cruralplasty with interrupted 0 Ethibond suture that was placed approximately at 1 cm intervals for a total of 3 stitches. With this approximation, there was still an approximately 1 cm gap between the posterior crural closure and the posterior esophagus. After this a partial, posterior (toupet type) fundal wrap was performed. To ensure the wrap was not overly tight anesthesia, I passed a 54 K[place]z bougie under direct laparoscopic visualization through the GE junction. The fundus of the stomach was secured to the crural elements and the phrenoesophageal ligament for the superiormost sutures. After performance of this wrap, the underside of the stomach was tacked to the crural repair with a 0 Ethibond suture for extra stability. Lastly, a endoscopic exam was performed of this wrap and we confirmed that the wrap allowed easy passage of the endoscope. The stomach was evacuated of air and the scope was withdrawn. Returning to the abdomen, a Fabricio retractor was removed from position under laparoscopic visualization and pneumoperitoneum was evacuated. The 10 mm port was closed under laparoscopic direction using a Kev Montgomery suture passer and #1 PDS in a [id number] technique. A total of 30 mL of half percent bupivacaine were infiltrated locally about these port sites both prior to insertion and at this point in closure. 4-0 Monocryl was used to close these incisions at the skin in a subcuticular fashion. Steri-Strips and OpSite dressings were applied and the case was formally concluded. The patient's nasogastric tube and Samuels catheter were removed and the patient was allowed to emerge from anesthesia. They were then delivered to PACU for ongoing recovery. Complications None
--- NOTE | 2023-11-17 15:08 | PCM.DC ---
Discharge Instructions Diet Discharge Diet: - (Full liquid diet x 2 weeks postop) Activity Discharge Activity: May Not Drive (No driving while using narcotic pain medication) and May Shower (Postoperative day 1) May shower in (days): 2 Ice area for (Minutes): 20 Lifting Restrictions: No lifting greater than 15 pounds for 2 weeks after surgery Dressing / Incision Call your doctor if your incision/area has: Continuous Slow Oozing, Increased Pain/ Swelling, Increased Redness, Foul Smelling Discharge and Swelling at the incision site Call your doctor if you observe: Fever of 101 or Higher and - (Difficulty swallowing) Remove Dressing in: 2 days (Please leave Steri-Strips intact until they fall off spontaneously or are taken off at your follow-up visit) Cleanse incision/area with: Soap & Water Follow Up Care Please Follow Up With: Saw Bruno MD When: 7-10days postop Test Results: Test results from this visit will be discussed in further detail at your follow-up appointment, if applicable. Discharge Plan Admission Primary Reason for Your Visit: Lap fundoplication Attending Provider: Saw Bruno Primary Care Provider: Jai Posada Instructions Additional Instructions / Restrictions: Please resume Simponi and Arava 2 weeks postop. Continue full liquid diet for 2 weeks postop Discharge Orders/Prescriptions Prescriptions: Continued famotidine [Pepcid] 20 mg tablet 20 mg PO BID sucralfate [Carafate] 1 gram tablet 1 g PO QACHS cyclobenzaprine 10 mg tablet 10 mg PO TID PRN (Reason: muscle spasm) furosemide [Lasix] 20 mg tablet 20 mg PO BID Simponi 50 mg/0.5 mL pen injector 50 mg subcut QMONTH pseudoephedrine-guaifenesin [Mucinex D] 60-600 mg tablet extended release 12 hr 1 tab PO BID PRN (Reason: ALLERGIES) hydroxychloroquine [Plaquenil] 200 mg tablet 200 mg PO QHS ipratropium-albuterol 0.5 mg-3 mg(2.5 mg base)/3 mL solution for nebulization 3 ml inhalation PRN PRN (Reason: shortness of breath) leflunomide [Arava] 20 mg tablet 20 mg PO DAILY losartan 50 mg tablet 50 mg PO BID meloxicam 15 mg tablet 15 mg PO DAILY Hold Instructions: ON HOLD FOR SURGERY metoprolol succinate [Toprol XL] 100 mg tablet extended release 24 hr 100 mg PO QHS montelukast [Singulair] 10 mg tablet 10 mg PO DAILY potassium chloride 10 mEq capsule, extended release 10 meq PO BID ascorbate calcium (vitamin C) 500 mg tablet 500 mg PO BID amlodipine 10 mg tablet 10 mg PO DAILY budesonide-formoterol 160-4.5 mcg/actuation HFA aerosol inhaler 2 inh INHALATION BID albuterol sulfate 90 mcg/actuation HFA aerosol inhaler 1 inh INHALATION PRN cetirizine 10 mg tablet 10 mg PO BID azelastine 137 mcg (0.1 %) aerosol,spray 1 spray INTRANASAL BID Incruse Ellipta 62.5 mcg/actuation blister with device 1 inh inhalation DAILY lansoprazole 15 mg capsule,delayed release(DR/EC) 15 mg PO DAILY Qty: 60 0RF Referrals / Follow Up: Jai Posada DO [Primary Care Provider] - Disposition Disposition (needs filled in before D/C Order can be placed): Home, Self Care
[2023-11-17] MEDS: 0.9% Normal Saline (1000mL) 1,000 ML 125 ML IV ×2 (17:05→23:13)
[2023-11-17] MEDS: Ketorolac 30 MG/ML Syringe IV ×2 (18:13→23:16)
[2023-11-17] MEDS: oxyCODONE Soln 5 MG/0.25 ML PO.SYRINGE SL (20:39)
[2023-11-17] MEDS: Ondansetron 4 MG/2 ML Vial IV (23:12)
[2023-11-18 04:00] VITALS: RESP 15
[2023-11-18 04:14] VITALS: BP 112/80; PULSE 93; RESP 15; TEMP 37.4; O2SAT 98
[2023-11-18] MEDS: Ketorolac 30 MG/ML Syringe IV (06:07)
[2023-11-18] MEDS: Ondansetron 4 MG/2 ML Vial IV (06:10)
--- NOTE | 2023-11-18 07:53 | PCM.PN.SRG ---
Subjective Subjective Patient tolerating clears denies any nausea, pain controlled Objective Data Objective Data Vital Signs: Vital Signs Temp Pulse Resp BP Pulse Ox O2 Del Method O2 Flow Rate 99.4 F H 93 15 112/80 98 Room Air 2 11/18/23 04:14 11/18/23 04:14 11/18/23 04:14 11/18/23 04:14 11/18/23 04:14 11/18/23 04:14 11/17/23 23:18 Oxygen Flow Rate (L/min) 2 Oxygen Delivery Method Room Air Weight: 169 lb 12.095 oz Body Mass Index (BMI) 30.0 Intake & Output: Intake and Output for Last 24 Hours 11/16/23 11/17/23 11/18/23 23:59 23:59 23:59 Intake Total 2947.67 / 3147.67 400 / 400 Output Total 1000 / 1000 Balance 1947.67 / 2147.67 400 / 400 Lab / Micro Data 11/09/23 12:45 Physical Exam Resp normal respiratory effort Cardio regular rate GI GI Narrative: Abdomen: Soft, nondistended, tender near incision's dressed clean dry and intact, no peritoneal signs Assessment & Plan Assessment/Plan (1) S/P laparoscopic fundoplication: PLAN: Plan Postop day 1 status post laparoscopic fundoplication Tolerating clears will advance to full's. Patient will stay on fulls x 2 weeks-if tolerates patient can DC home Continue pain control Sandra Palencia M.D. Pager: [phone] [facility] [address] [place] [address], [facility], [address] [place] [address] Office: [phone]
[2023-11-18 08:41] VITALS: BP 121/69; PULSE 65; RESP 16; TEMP 36.9; O2SAT 95
== END 2023-11-18 09:50 | disposition home or self-care (01) ==
LOC: SDC 15:38 → MS3 15:38
PROVIDERS: Anesthesiology; Admitting Provider Surgery; PCP Student in an Organized Health Care Education/Training Program; Referring Provider Surgery; Visit Provider Surgery
PROC: (CPT 43325; principal; 2023-11-17 10:10)
DX: K44.9 Diaphragmatic hernia without obstruction or gangrene (principal); M06.9 Rheumatoid arthritis, unspecified; F17.210 Nicotine dependence, cigarettes, uncomplicated; I10 Essential (primary) hypertension; K21.9 Gastro-esophageal reflux disease without esophagitis; Z79.899 Other long term (current) drug therapy; J45.909 Unspecified asthma, uncomplicated
CPT/HCPCS: 43281; 00790; 36415; 85027; 93005; 96361; 96374; 96375; 96376; 99221; J7030; J7120; G0378; J2405

== ENCOUNTER → 2024-05-17 | Outpatient (CLI) | payer OTHER, MEDICAID, SELFPAY ==
--- NOTE | 2024-05-17 07:30 | CT_ITS ---
EXAM: CT ABDOMEN WITH INTRAVENOUS CONTRAST CLINICAL INDICATION: abdominal pain TECHNIQUE: Helically acquired images were obtained of the abdomen with intravenous contrast. This CT exam was performed using one or more of the following dose reduction techniques: automated exposure control, adjustment of the mA and/or kV according to patient size, and/or use of iterative reconstruction technique. CONTRAST: Oral and amp; IV Readi-CAT and amp; 75mL Isovue-370 COMPARISON: Gastric emptying study, 08/17/2023 and upper GI barium swallow, 08/11/2023. FINDINGS: LOWER THORAX: Perhaps mild wall thickening of the distal esophagus. Lung bases are clear. No cardiomegaly. No significant pericardial effusion. LIVER: There are multiple low-attenuation foci within the liver which are consistent with cysts and for which no follow-up is indicated. GALLBLADDER AND BILE DUCTS: Status post cholecystectomy. No intra- or extrahepatic biliary ductal dilation. PANCREAS: No significant abnormality. No focal cystic or solid mass. SPLEEN: No significant abnormality. Normal size without focal cystic or solid mass. ADRENALS: No significant abnormality. No nodules. KIDNEYS AND URETERS: There are nonobstructing calculi in the lower pole of the left kidney, the largest measuring approximately 4 mm. There are calculi within the upper pole of the right kidney, the largest measuring approximately 4 mm. No hydronephrosis. Scarring throughout the left kidney with multifocal cortical thinning. STOMACH AND BOWEL: Postoperative changes of the GE junction. No stomach or bowel distention. No focal inflammatory change. APPENDIX: The appendix is partially visualized and is normal. INTRAPERITONEAL SPACE: No significant abnormality. No ascites or other fluid collection. No free air. BONES/JOINTS: Degenerative changes in the spine. No suspicious lytic or blastic abnormality. SOFT TISSUES: No significant abnormality. No discrete abdominal wall hernia. VASCULATURE: No significant abnormality. Abdominal aorta is non-dilated. LYMPH NODES: No enlarged lymph nodes. CT/Abdomen WITH IV Contrast IMPRESSION: 1. There are nonobstructing calculi in the lower pole of the left kidney, the largest measuring approximately 4 mm. There are calculi within the upper pole of the right kidney, the largest measuring approximately 4 mm. No hydronephrosis. 2. Scarring throughout the left kidney with multifocal cortical thinning. 3. Postoperative changes of the GE junction. Findings suggest fundoplication. 4. Perhaps mild wall thickening of the distal esophagus. Electronically Signed: Casa Barnett DO at 20:56 EDT ,
[2024-05-17 07:54] LABS: CREATININE FINGERSTICK < 1.0 mg/dL (0.55-1.02); EGFR FINGERSTICK > 60.0000 mL/min (>60)
== END | disposition home or self-care (01) ==
PROVIDERS: PCP Student in an Organized Health Care Education/Training Program; Referring Provider Surgery; Visit Provider Surgery
DX: R10.9 Unspecified abdominal pain (principal); Z98.890 Other specified postprocedural states
CPT/HCPCS: 74160; Q9967

== ENCOUNTER → 2024-05-20 | Outpatient (CLI) | payer OTHER, MEDICAID, SELFPAY ==
--- NOTE | 2024-05-20 08:11 | RAD_ITS ---
STUDY: AIR CONTRAST UPPER GI SERIES REASON FOR EXAM: Female, 49 years old. K21.9 - Gastro-esophageal reflux disease without esophagitis FLUOROSCOPY TIME (if supplied): (69 seconds) minutes/seconds. 91.2 mGy. 92 fluoroscopic images were obtained. TECHNIQUE: SINGLE CONTRAST AND AIR CONTRAST FLUOROSCOPIC IMAGES. COMPARISON: None. FINDINGS: The cervical esophagus demonstrates normal motility without aspiration. There is no stricture or extrinsic mass effect. No intraluminal polypoid mass is identified. The thoracic esophagus distends well without stricture or mucosal fold thickening. No mucosal ulcerations are identified. There is no extrinsic mass effect. There are no diverticula. No hiatal hernia or gastroesophageal reflux was identified. The stomach distends well without mucosal fold thickening or mucosal ulceration. There is no intraluminal mass. The duodenal bulb is freely distensible without deformity or ulceration. The duodenal sweep is normal in position and caliber. RAD/Upper GI w/BA Swallow IMPRESSION: Normal air-contrast upper GI series. Electronically Signed: Shakir Valles MD at 10:28 EDT ,
== END | disposition home or self-care (01) ==
PROVIDERS: PCP Student in an Organized Health Care Education/Training Program; Referring Provider Surgery; Visit Provider Surgery
DX: K21.9 Gastro-esophageal reflux disease without esophagitis (principal)
CPT/HCPCS: 74246

== ENCOUNTER 2024-07-16 07:25 | Day surgery (SDC) | payer OTHER, MEDICAID, SELFPAY ==
[2024-07-16] VITALS (9 sets, daily range): BP systolic 104–146; BP diastolic 66–88; PULSE 77–86; RESP 16; TEMP 36.1–36.4; O2SAT 93–99; BMI 29.7
--- NOTE | 2024-07-16 08:04 | PCM.PRE.AN2 ---
ASA Classification* ASA Classification ASA Classification: 2 Assessment & Plan Anesthesia* Anesthesia Assessment Anesthesia Assessment: Discussed sedation and/or anesthesia options, risks, benefits, and alternatives with patient/parents/legal guardian/POA. Questions invited. The patient/parents/legal guardian/POA seems to understand and agrees to proceed with anesthesia plan. Reviewed the physical assessment, medical history, allergy history and patient home medications list prior to surgery/procedure/anesthetic and documented any changes. Performed airway and anesthesia risk assessments. Anesthesia Type Anesthesia Type: MAC Anesthesia Focused Assessment* Temperature: 97.5 F Pulse Rate: 78 Blood Pressure: 146/88 Respiratory Rate: 16 Pulse Ox: 99 Airway Assessment Mouth opens: >3 cm Mallampati Score: II Focused Labs Anesthesia Preop lab: CBC WBC 11.2 K/mm3 (4.4-11.0) H 11/09/23 12:45 RBC 4.75 M/mm3 (4.2-5.4) 11/09/23 12:45 Hgb 14.5 g/dL (12.0-15.0) 11/09/23 12:45 Hct 44.8 % (37-47) 11/09/23 12:45 Plt Count 303 K/mm3 (150-450) 11/09/23 12:45 CHEMISTRY Potassium 3.6 mmol/L (3.5-5.1) 12/11/13 13:24 Sodium 139 mmol/L (136-145) 12/11/13 13:24 BUN 7 mg/dL (7-18) 12/11/13 13:24 Creatinine 0.8 mg/dL (0.6-1.0) 12/11/13 13:24 Glucose 100 mg/dL (70-110) 12/11/13 13:24 TSH 0.88 uIU/mL (0.358-3.74) 04/06/12 12:21 COAG Pre-Assessment Diagnosis/Proposed Procedure Planned Operative Procedure(s): EGD Anesthesia History 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 When Was Last Pacemaker Check QUESTION #4 FULL TEXT: You/Your Family Experience fever (hyperthermia) with Anesthesia Last Oral Intake Last Oral intake: Last Oral Intake NPO since 22:30 07/16/24 07:50 Meds taken in AM with sips of Yes 07/16/24 07:50 water? Meds patient instructed to AMLODIPINE 07/16/24 07:50 take am of surgery LOSARTN USE INHALERS PONV PONV - propulsion systems engineer: PONV - propulsion systems engineer Female Yes 07/12/24 14:54 HX of Motion Sickness No 07/12/24 14:54 HX of N/V After Surgery No 07/12/24 14:54 Non-Smoker No 07/12/24 14:54 Duration of Surgery greater No 07/12/24 14:54 than 60 minutes Number of Risk Factors 1 07/12/24 14:54 PONV Score Low Risk 07/12/24 14:54 Height & Weight Height & Weight: Anesthesia: Height & Weight Height 5 ft 3 in 07/16/24 07:50 Weight: 76 kg 07/16/24 07:50 Body Mass Index (BMI) 29.7 07/16/24 07:50 Respiratory Assessment Respiratory Assessment - propulsion systems engineer: Respiratory Tract Infection Hx - propulsion systems engineer Hx Respiratory Tract Infection No 07/12/24 14:54 STOP Sleep Apnea STOP Sleep Apnea - propulsion systems engineer: STOP Sleep Apnea - propulsion systems engineer Hx Hypertension Yes: CONTROLLED ON MED 07/12/24 14:54 Hx Sleep Apnea No 07/12/24 14:54 CPAP BIPAP Do you snore loudly (louder No 07/12/24 14:54 than talking or can be heard Do you often feel tired/ No 07/12/24 14:54 fatigued/ sleepy during daytime? Has anyone observed you stop No 07/12/24 14:54 breathing during sleep? STOP Results Negative 07/12/24 14:54 QUESTION #5 FULL TEXT : Do you snore loudly (louder than talking or can be heard through closed doors)? 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 Specify any problems Hx of Preganancy in last 3 No 07/12/24 14:54 Months Nurse Filling Out Transfusion VCHRISTIN 07/12/24 14:54 & Questions: Date: 07/12/24 07/12/24 14:54 Time: 14:55 07/12/24 14:54 Patient unable to answer at this time (ie. confused, unrespo /Reproduction History /Reproductive History - propulsion systems engineer: /Reproductive Hx- propulsion systems engineer Hx Now No 07/12/24 14:54 Gestational Age (in weeks): EDC: Hx Hx Para Hx Section SAB No 07/12/24 14:54 PFSH Medical History Abdominal pain Contact with or exposure to other viral diseases URI (upper respiratory infection) Wears glasses Alcohol use History of steroid therapy Rheumatoid arthritis Arthritis Fatty liver Back pain History of hiatal hernia Gastric reflux Smoker Chronic cough History of edema Hypertension History of stress test MVP (mitral valve prolapse) Post hysterectomy menopause Asthma Acid reflux Physical exam, pre-employment Home Medications ?Medication ?Instructions ?Recorded ?Last Taken ?Type ascorbate calcium (vitamin C) 500 500 mg PO BID 02/21/23 07/15/24 History mg tablet cyclobenzaprine 10 mg tablet 10 mg PO TID PRN muscle spasm 02/21/23 Unknown History furosemide 20 mg tablet (Lasix) 20 mg PO BID 02/21/23 07/15/24 History ipratropium 0.5 mg-albuterol 3 mg 3 ml inhalation PRN PRN shortness 02/21/23 Unknown History (2.5 mg base)/3 mL nebulization of breath soln leflunomide 20 mg tablet (Arava) 20 mg PO DAILY 02/21/23 07/15/24 History losartan 50 mg tablet 50 mg PO BID 02/21/23 07/16/24 History meloxicam 15 mg tablet 15 mg PO DAILY 02/21/23 07/09/24 History metoprolol succinate 100 mg 100 mg PO QHS 02/21/23 07/15/24 History tablet,extended release 24 hr (Toprol XL) montelukast 10 mg tablet 10 mg PO DAILY 02/21/23 07/15/24 History (Singulair) pseudoephedrine-guaifenesin ER 60 1 tab PO BID PRN ALLERGIES 02/21/23 07/15/24 History mg-600 mg tablet,extend release 12hr (Mucinex D) albuterol sulfate 90 mcg/actuation 1 inh inhalation PRN ALLERGIES 04/10/23 07/15/24 History aerosol inhaler amlodipine 10 mg tablet 10 mg PO DAILY 04/10/23 07/16/24 05:30 History azelastine 137 mcg (0.1 %) nasal 1 spray intranasal BID 04/10/23 07/15/24 History spray budesonide-formoterol HFA 160 2 inh inhalation BID 04/10/23 07/16/24 History mcg-4.5 mcg/actuation aerosol inhaler cetirizine 10 mg tablet 10 mg PO BID 04/10/23 07/15/24 History cholecalciferol (vitamin D3) 25 25 mcg PO DAILY 07/12/24 07/15/24 History mcg (1,000 unit) tablet (Vitamin D3) conjugated estrogens 1.25 mg 1.25 mg PO DAILY 07/12/24 07/15/24 History tablet (Premarin) lansoprazole 15 mg capsule,delayed 30 mg PO DAILY 07/12/24 07/15/24 History release tocilizumab 162 mg/0.9 mL 162 mg subcut Q14D 07/12/24 07/12/24 History subcutaneous pen injector (Actemra ACTPen) umeclidinium 62.5 mcg-vilanterol 1 inh inhalation DAILY 07/12/24 07/16/24 History 25 mcg/actuation powdr for inhalation (Anoro Ellipta) Allergy/AdvReac Type Severity Reaction Status Date / Time doxycycline Allergy Severe Angioedema Verified 07/16/24 07:47 Sulfa (Sulfonamide Allergy Severe Angioedema Verified 07/16/24 07:47 Antibiotics) Seasonal Allergies: Uncoded Allergy Mild SOB Verified 07/16/24 07:47 amoxicillin (From Augmentin) AdvReac Intermediate Diarrhea Verified 07/16/24 07:47 clavulanic acid (From AdvReac Intermediate Diarrhea Verified 07/16/24 07:47 Augmentin) Surgical History History of Luis fundoplication Hx of colonoscopy Hx of tubal ligation Hx laparoscopic cholecystectomy History of esophagogastroduodenoscopy (EGD) History of tonsillectomy Hx of hysterectomy Total knee replacement status Social History Smoking Status: Current every day smoker tobacco type: cigarettes alcohol intake: current alcohol intake frequency: holidays/special occasions only substance use type: does not use Review of Systems (Anesthesia) ROS Narrative System reviewed and no additional complaints, except as documented.
--- NOTE | 2024-07-16 08:30 | IMM_PTH ---
PATIENT: KIMBERLY STEPHENS LOC: EN U#:[id number] AGE/SX: 49/F ROOM: RE07/16/[address]: Dr. Saw Bruno MD : 1975 BED: DIS: 07/16/2024 SPEC #: [id number] RECD: 07/16/24 13:23 STATUS: LEANNE REQ #: [id number] RADHA: 07/16/24 08:[address]: Saw Bruno DEPT: IMMUNOHISTOCHEMISTRY RECD BY: Mj Yates ENTERED: 07/16/24 13:23 SP TYPE: IMMUNO OTHR DR: Dr. Jai Posada DO Tissues: A - Gastric mucous membrane Procedures: H Pylori (initial) PHYSICIAN & INSTITUTION [place] [address] SPECIMEN INFORMATION: Tissue Source: A- Antral mucosa biopsy Clinical Info: Acid reflux, postoperative abdominal pain Specimen Number: [id number] CPT code: 22216 METHODOLOGY: Deparaffinized sections of prefer/formalin-fixed tissue or PAP/DQ stained slides are incubated with monoclonal/polyclonal antibodies/oligonucleotide probes. Localization is made via biotin free immunoperoxidase method. Appropriate controls are performed and reacted as expected. Results on target cell population are indicated in the following table: RESULTS: ANTIBODY / CLONE RESULT Block A H Pylori (polyclonal) negative These tests were developed and their performance characteristics determined by [facility]. They may not have been cleared or approved by the U.S. Food and Drug Administration. The FDA has determined that such clearance or approval is not necessary. The above immunohistochemical/dualISH markers are ordered and reviewed by the Pathologist. INTERPRETATION: A. Antral mucosa, biopsy: Negative for Helicobacter pylori organisms. AM 07/17/2024
--- NOTE | 2024-07-16 08:30 | EGD_PTH ---
PATIENT: KIMBERLY STEPHENS LOC: EN U#:[id number] AGE/SX: 49/F ROOM: RE07/16/[address]: Dr. Saw Bruno MD : 1975 BED: DIS: 07/16/2024 SPEC #: [id number] RECD: 07/16/24 11:02 STATUS: LEANNE ALEX #: [id number] RADHA: 07/16/24 08:[address]: Saw Bruno DEPT: SURGICAL PATHOLOGY RECD BY: Brenda Christopher ENTERED: 07/16/24 11:52 SP TYPE: EGD BIOPSY ALEXANDRA DR: Dr. Jai Posada DO Tissues: A - Gastric mucous membrane B - Gastric mucous membrane C - COLON BIOPSY D - Esophageal mucous membrane Procedures: Surgery Specimen Level IV HEADER OPERATION: EGD with biopsy PRE-OP DIAGNOSIS: Acid reflux, postoperative upper abdominal pain TISSUE SUBMITTED: A- Antral mucosa biopsy, B- Greater curvature biopsy, C- Fundal biopsy, D- Mid esophageal plaque biopsy MICROSCOPIC DIAGNOSIS A. Gastric antrum, biopsy: Mild chronic inflammation. See comment. B, Stomach, greater curvature, biopsy: Fragments of benign superficial gastric mucosa. C. Gastric fundus, biopsy: Mild chronic gastritis. D. Mid esophageal plaque, biopsy: Fragments of benign squamous mucosa. No evidence of inflammation. AMNatacha 07/17/2024 COMMENT A. The results of immunohistochemistry for Helicobacter pylori will be reported separately ([id number]). MICROSCOPIC DESCRIPTION Slides are reviewed. GROSS DESCRIPTION A. Received in fixative is one container labeled with the patient's name and designated Antral mucosa biopsy. The specimen consists of two irregular fragments of light galvan soft tissue that in aggregate measure 0.6 x 0.2 x 0.1 cm. The specimen is totally submitted in one cassette. B. Received in fixative is one container labeled with the patient's name and designated Greater curvature mucosal biopsy. The specimen consists of one irregular fragment of light galvan soft tissue that measures 0.1 x 0.1 x 0.1 cm. The specimen is totally submitted in one cassette. C. Received in fixative is one container labeled with the patient's name and designated Fundal polyp biopsy. The specimen consists of multiple irregular fragments of light galvan soft tissue that in aggregate measure 0.8 x 0.2 x 0.1 cm. The specimen is totally submitted in one cassette. D. Received in fixative is one container labeled with the patient's name and designated Mid esophageal plaque biopsy. The specimen consists of multiple irregular fragments of light galvan soft tissue that in aggregate measure 1.0 x 0.3 x 0.1 cm. The specimen is totally submitted in one cassette. SJ.mr 07/16/2024 TC:[id number]
--- NOTE | 2024-07-16 08:34 | HP.PCM_ITS ---
History and Physical Date of Admission: 07/16/24 Date of Service: 04/26/24 MR#: [id number] Acct: [id number] Name: KIMBERLY BENJAMIN Rep #: [id number] : 1975 Provider: Dr. 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 Is patient in pain?: Yes (left of umbilicus) Allergies doxycycline Allergy (Severe, Verified 04/26/24 13:38) AngioedemaSulfa (Sulfonamide Antibiotics) Allergy (Severe, Verified 04/26/24 13: 38) AngioedemaSeasonal Allergies: Uncoded Allergy (Mild, Verified 04/26/24 13:38) SOBamoxicillin (From Augmentin) Adverse Reaction (Intermediate, Verified 04/26/24 13:38) Diarrheaclavulanic acid (From Augmentin) Adverse Reaction (Intermediate, Verified 04/26/24 13:38) Diarrhea Medications ?Medication ?Instructions ?Recorded ?Confirmed ?Type ascorbate calcium (vitamin C) 500 500 mg PO BID 02/21/23 04/26/24 History mg tablet cyclobenzaprine 10 mg tablet 10 mg PO TID PRN muscle spasm 02/21/23 04/26/24 History furosemide 20 mg tablet (Lasix) 20 mg PO BID 02/21/23 04/26/24 History golimumab 50 mg/0.5 mL 50 mg subcut QMONTH 02/21/23 04/26/24 History subcutaneous pen injector (Simponi) hydroxychloroquine 200 mg tablet 200 mg PO QHS 02/21/23 04/26/24 History (Plaquenil) ipratropium 0.5 mg-albuterol 3 mg 3 ml inhalation PRN PRN shortness 02/21/23 04/26/24 History (2.5 mg base)/3 mL nebulization of breath soln leflunomide 20 mg tablet (Arava) 20 mg PO DAILY 02/21/23 04/26/24 History losartan 50 mg tablet 50 mg PO BID 02/21/23 04/26/24 History meloxicam 15 mg tablet 15 mg PO DAILY 02/21/23 04/26/24 History metoprolol succinate 100 mg 100 mg PO QHS 02/21/23 04/26/24 History tablet,extended release 24 hr (Toprol XL) montelukast 10 mg tablet 10 mg PO DAILY 02/21/23 04/26/24 History (Singulair) potassium chloride 10 mEq 10 meq PO BID 02/21/23 04/26/24 History capsule,extended release pseudoephedrine-guaifenesin ER 60 1 tab PO BID PRN ALLERGIES 02/21/23 04/26/24 History mg-600 mg tablet,extend release 12hr (Mucinex D) albuterol sulfate 90 mcg/actuation 1 inh inhalation PRN ALLERGIES 04/10/23 04/26/24 History aerosol inhaler amlodipine 10 mg tablet 10 mg PO DAILY 04/10/23 04/26/24 History azelastine 137 mcg (0.1 %) nasal 1 spray intranasal BID 04/10/23 04/26/24 History spray budesonide-formoterol HFA 160 2 inh inhalation BID 04/10/23 04/26/24 History mcg-4.5 mcg/actuation aerosol inhaler cetirizine 10 mg tablet 10 mg PO BID 04/10/23 04/26/24 History umeclidinium 62.5 mcg/actuation 1 inh inhalation DAILY 04/10/23 04/26/24 History blister powder for inhalation (Incruse Ellipta) pantoprazole 40 mg tablet,delayed 40 mg PO QAM #30 tabs 04/26/24 04/26/24 Rx release Have you fallen in the past year?: No PFSH Medical History (Updated 04/27/24 @ 18:[address] Saw Bruno MD) Abdominal pain Contact with or exposure to other viral diseases URI (upper respiratory infection) Wears glasses Alcohol use History of steroid therapy Rheumatoid arthritis Arthritis Fatty liver Back pain History of hiatal hernia Gastric reflux Smoker Chronic cough History of edema Hypertension History of stress test MVP (mitral valve prolapse) Post hysterectomy menopause Asthma Acid reflux Physical exam, pre-employment Surgical History Hx of colonoscopy Hx of tubal ligation Hx laparoscopic cholecystectomy History of esophagogastroduodenoscopy (EGD) History of tonsillectomy Hx of hysterectomy Total knee replacement status Social History Smoking Status: Current every day smoker tobacco type: cigarettes alcohol intake: current alcohol intake frequency: holidays/special occasions only substance use type: does not use HPI HPI HPI: Patient presents following laparoscopic toupet fundoplication 11/17/2023. She was last seen 12/13/2023. This visit was scheduled on the account of some pain which developed just lateral to her supraumbilical port site. He states that since the development of this pain she has experienced what she believes is reflux. Finds herself becoming increasingly hoarse and coughing like previously. She notes this happens only after going to bed at night. She has frustrated as she states I was fine and had experienced relief for months after her operation. She estimates that the symptoms started 1 week before she departed on an international trip to [place] 03/20/2024. 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 She shares that she has not gone back on a proton pump inhibitor for her experience of acid reflux but has t ried famotidine without beneficial effect. She also shares that she is trying to stay up an additional 2 hours after coming home from work to see if this minimizes her experience of the reflux. Below is recapitulated from patient's prior visit for ease review: Patient presents following laparoscopic toupet fundoplication 11/17/2023. This represents patient's second postoperative visit. She presents today with her son. Today she confirms that she is overall doing well. However, she comments that she still cannot lay on her left side without feeling of pulling. She also reports that on 2 separate occasions she has experienced a sour taste within her mouth upon awakening. This is not to the degree that she experienced preoperatively, but she remains concerned about these experiences. She has noted a potential correlation with taking Plaquenil and the symptoms. She states that long before she ever underwent surgery she noticed that she required more reflux medication after starting the Plaquenil. She has thus discontinued this medication and believes it to be helping with her symptoms. Mrs. Benjmain notes some experience of constipation but shares that simply taking some fruit juice helped with that. She has had an uneventful transition to soft foods and denies any food becoming stuck or swallowing difficulty generally. She also happily reports that her PCP, Dr. Posada has shared with her that her lung auscultation is better than it has been previously and that her voice seems less raspy?both things pointing to a secondary improvement from no longer aspirating acid. She does share that Dr. Posada has recommended extending her leave of absence from work a little longer so that she can heal more fully. Exam Const General: cooperative and comfortable Orientation: alert, awake and oriented x3 Resp Effort & Inspection: normal respiratory effort GI Other: Well-healed port sites, nondistended, soft, mildly tender to palpation just left of supraumbilical port site. I did not palpate any irregular contents or fascial defects consistent with a hernia. Assessment and Plan Assessment and Plan (1) Acid reflux: Status: Chronic Comment: This is a 48-year-old female who follows up for evaluation of intractable reflux symptoms. She reports resolution of her heartburn symptoms, but confirms that her reflux symptoms have largely persisted despite transitioning to lansoprazole from pantoprazole. In the interim we did obtain ambulatory pH testing results from her concurrent EGD which showed her DeMeester scores to be significantly above the cutoff of 14.7. I held a nice conversation with patient and her friend regarding the physiology and pathophysiology at play. Hand drawings were used to illustrate the important anatomical differences. At this point, I have shared with Mrs. Benjamin that I would like to both update her upper GI series as this was last performed 6 years ago as well as obtain gastric emptying evaluation given her reports of undigested food 24 hours into a fast. I have shared with her the implications of this latter study if found to be abnormal. She has had considerable weight loss to date, but I did discuss with her that 1 option around a dysfunctional stomach may be a consider gastric bypass altogether. At this point Ms. Benjamin wishes to proceed as described and is reluctant to consider gastric bypass. Additionally she confirms that she is still smoking so this would preclude that as a surgical option as well. Today Ms. Benjamin continues to report ongoing difficulty with reflux. We took time to review the results of her upper GI series which did not demonstrate evidence of a hiatal hernia nor reflux but she was quick to recall that a similar study in 2017 had identified both. I also shared with her that her gastric emptying study was within normal limits indicating no concerns for gastroparesis. As above, based on her overall workup and specifically the findings of her EGD and pH probe results I believe she would benefit from antireflux surgery. She states that she did discuss this operation with her PCP who is all for it. They did share that there may be several medication she would have to discontinue (including Simponi and leflunomide). Given this interest, I have shared with Ms. Benjamin that I would request 1 more study with esophageal manometry so that we can know whether she would benefit from a partial or a complete fundoplication. She readily accepted this recommendation and will be scheduled for further study. Given our in-depth conversation sedate, I shared that we may consider proceeding simply with surgical scheduling following these results if favorable. She is in agreement. 10/12: Patient continues with some regurgitation but less frequent reflux. She has completed manometry which shows mildly elevated LES pressures but no evidence of achalasia. Based on this information I am inclined to proceed with a partial fundoplication and discussed this rationale with both patient and her friend. They are in agreement. Additionally I discussed the details of the procedure as well as the postprocedure recovery. Ms. Benjamin is ready to be underway as soon as possible. To this end, we have discussed holding her rheumatologic biologics appropriately. She states that she has not had a recent Simponi infusion but was just administered Arava this week. Therefore, I have advised that we should wait 4 weeks before scheduling surgery and advised against any further administrations. Patient is also informed that she should plan for overnight observation following surgery. 04/26: Patient reports return of reflux after complete remission of the symptoms postoperatively. This is concerning for possible disruption of patient's wrap. I would like to confirm evidence of reflux objectively with a repeat esophagram with upper GI. Follow-up the results of the study before making additional treatment plans Plan: Upper GI with esophagram (2) Postoperative upper abdominal pain: Status: Acute Comment: Patient describes initially isolated left upper quadrant abdominal discomfort ou tside of the area of our primary dissection and not in line with our prior port placement. Yet, her description is suggestive of a possible underlying hernia. Her habitus precludes careful evaluation of the fascia so I will obtain a CT of the abdomen with oral and IV contrast to try to look for a source of this new discomfort. Plan: CT of the abdomen I have examined the patient the following changes are noted: Ms. Benjamin went through with esophagram which was read as normal and CT imaging of the abdomen pelvis shows expected post fundoplication anatomy. She did have a recent upper respiratory tract infection and required a steroid for treatment. She notes during the course of his treatment that she had temporary pause of her symptoms. In discussing this revelation with her hairdresser they suggested it might be reasonable to check for eosinophilic esophagitis. With patient's other atopy I do find this to be a reasonable thought and so we will plan for esophageal biopsies as well as a standard EGD with today's exam. Will now proceed to endoscopy suite.
--- NOTE | 2024-07-16 09:15 | OP.EGD_ITS ---
Patient Name: Michelle Benjamin Procedure Date: 07/16/2024 8:21 AM Date of : 1975 Age: 49 Procedure: Upper GI endoscopy Indications: Dysphagia, Reflux esophagitis, s/p fundoplication Providers: Saw Bruno MD Medicines: See the Anesthesia note for documentation of the administered medications Patient Profile: Refer to note in patient chart for documentation of history and physical. Complications: No immediate complications. Estimated blood loss: Minimal. Procedure: Pre-Anesthesia Assessment: - The heart rate, respiratory rate, oxygen saturations, blood pressure, adequacy of pulmonary ventilation, and response to care were monitored throughout the procedure. After obtaining informed consent, the endoscope was passed under direct vision. Throughout the procedure, the patient's blood pressure, pulse, and oxygen saturations were monitored continuously. The gastroscope was introduced through the mouth, and advanced to the second part of duodenum. The upper GI endoscopy was accomplished without difficulty. The patient tolerated the procedure well. Scope In: 8:48:32 AM Scope Out: 9:03:29 AM Total Procedure Duration Time 0 hours 14 minutes 57 seconds Findings: The duodenal bulb, first portion of the duodenum and second portion of the duodenum were normal. No biopsies or other specimens were collected for this exam. Erythematous mucosa was found on the greater curvature of the stomach and in the gastric antrum. Biopsies were taken with a cold forceps for histology. Estimated blood loss was minimal. Biopsies were taken with a cold forceps for histology. Estimated blood loss was minimal. Bilious fluid was found in the stomach. No biopsies or other specimens were collected for this exam. A single 3 mm semi-sessile polyp with no bleeding and no stigmata of recent bleeding was found in the gastric fundus. Biopsies were taken with a cold forceps for histology. Estimated blood loss was minimal. fundal wrap intact s/p fundoplication, No biopsies or other specimens were collected for this exam. The Z-line was irregular. No biopsies or other specimens were collected for this exam. The examined esophagus was mildly tortuous. No biopsies or other specimens were collected for this exam. A single 3 mm plaque was found in the middle third of the esophagus, 25 cm from the incisors. Estimated blood loss was minimal. The exam was otherwise without abnormality. Impression: - Normal duodenal bulb, first portion of the duodenum and second portion of the duodenum. No specimens collected. - Erythematous mucosa in the greater curvature and antrum. Biopsied. - Bilious gastric fluid. No specimens collected. - A single gastric polyp. Biopsied. - Z-line irregular. No specimens collected. - Tortuous esophagus. No specimens collected. - A single plaque in the middle third of the esophagus. - The examination was otherwise normal. Recommendation: - Discharge patient to home (via wheelchair). - Resume previous diet today. - No aspirin, ibuprofen, naproxen, or other non-steroidal anti-inflammatory drugs for 2 days after biopsy. - Await pathology results. - Telephone my office for pathology results in 1 week. Procedure Code(s): --- Professional --- 68857, Esophagogastroduodenoscopy, flexible, transoral; with biopsy, single or multiple Diagnosis Code(s): --- Professional --- K31.89, Other diseases of stomach and duodenum K31.7, Polyp of stomach and duodenum K22.89, Other specified disease of esophagus Q39.9, Congenital malformation of esophagus, unspecified R13.10, Dysphagia, unspecified K21.00, Gastro-esophageal reflux disease with esophagitis, without bleeding CPT copyright 2021 [employer]. All rights reserved. The codes documented in this report are preliminary and upon coating and embossing unit operator review may be revised to meet current compliance requirements. Saw Bruno MD 07/16/2024 9:14:42 AM This report has been signed electronically. Number of Addenda: 0 Note Initiated On: 07/16/2024 8:21 AM
--- NOTE | 2024-07-16 09:15 | OP.CCLET_ITS ---
07/16/2024 Jai Posada [address] [place] [address] Re : Upper GI endoscopy procedure for Michelle Benjamin Dear Dr. Posada This procedure was performed on Tuesday, July 16, 2024. My impressions and recommendations are as follows: Impressions : - Normal duodenal bulb, first portion of the duodenum and second portion of the duodenum. No specimens collected. - Erythematous mucosa in the greater curvature and antrum. Biopsied. - Bilious gastric fluid. No specimens collected. - A single gastric polyp. Biopsied. - Z-line irregular. No specimens collected. - Tortuous esophagus. No specimens collected. - A single plaque in the middle third of the esophagus. - The examination was otherwise normal. Recommendations : - Discharge patient to home (via wheelchair). - Resume previous diet today. - No aspirin, ibuprofen, naproxen, or other non-steroidal anti-inflammatory drugs for 2 days after biopsy. - Await pathology results. - Telephone my office for pathology results in 1 week. My findings are described in the full procedure note, which is enclosed. If I can be of further assistance, please feel free to contact me at Doctor phone number(s): , Work: . Sincerely, Saw Bruno MD 07/16/2024 9:14:42 AM This report has been signed electronically.
--- NOTE | 2024-07-16 09:16 | PCM.POST.ANE ---
Anesthesia: Postop Eval I Current Vital Signs Temperature: 97 F Pulse Rate: 77 Blood Pressure: 107/66 Respiratory Rate: 16 Pulse Ox: 95 Oxygen Delivery Method: Room Air Assessment Airway patent: Yes Spontaneous unlabored respirations: Yes Mental status: Awake and Calm nausea: No Vomiting: No Anesthesia Complication: No Fluid Hydration Crystalloid volume administer (ml): 60 Total IV fluid infused: 60 Progress Note Anesthesia document: Postop Eval 1 completed: Yes
--- NOTE | 2024-07-16 10:13 | PCM.POSTANE2 ---
Anesthesia Postop Eval I Sum Postop Eval Completion status Anesthesia document: Postop Eval 1 completed: Yes Anesthesia Postop Eval I Summary Anesthesia Postop Eval I Summary: Anesthesia Postop Eval I: Assessment Summary Airway patent Yes 07/16/24 09:16 [email or web address] Spontaneous unlabored Yes 07/16/24 09:16 [email or web address] respirations Mental status Awake,Calm 07/16/24 09:16 [email or web address] nausea No 07/16/24 09:16 [email or web address] Vomiting No 07/16/24 09:16 [email or web address] Anesthesia Postop Eval I: Fluid Summary Crystalloid volume administer 60 07/16/24 09:16 [email or web address] (ml) Colloids volume administered ( ml) Blood Product volume administered (ml) Total IV fluid infused 60 07/16/24 09:16 [email or web address] Anesthesia Postop Eval I: Summary Notes Anesthesia Complication No 07/16/24 09:16 [email or web address] Anesthesia Complication Comment: Post-operative progress note Anesthesia: Postop Eval II Evaluation Mental status: Awake Pain Level: 0 nausea: No Vomiting: No
== END 2024-07-16 09:40 | disposition home or self-care (01) ==
LOC: EN 07:27 → AC 07:29
PROVIDERS: PCP Student in an Organized Health Care Education/Training Program; Referring Provider Student in an Organized Health Care Education/Training Program; Visit Provider Surgery
PROC: 0DJ08ZZ Inspection of Upper Intestinal Tract, Via Natural or Artificial Opening Endoscopic (ICD-10-PCS; CPT 43235; principal; 2024-07-16 08:25)
DX: K29.50 Unspecified chronic gastritis without bleeding (principal); K21.00 Gastro-esophageal reflux disease with esophagitis, without bleeding; I10 Essential (primary) hypertension; K31.7 Polyp of stomach and duodenum; Z79.899 Other long term (current) drug therapy; J45.909 Unspecified asthma, uncomplicated; F17.210 Nicotine dependence, cigarettes, uncomplicated; R10.10 Upper abdominal pain, unspecified; G89.18 Other acute postprocedural pain
CPT/HCPCS: 43239; 88305; 88342; A4216; J2405

== ENCOUNTER → 2024-09-13 | Outpatient (CLI) | payer OTHER, SELFPAY ==
--- NOTE | 2024-09-13 16:33 | MRI_ITS ---
PROCEDURE: MRI left femur without IV contrast REASON FOR EXAM: Pain, hamstring rupture TECHNIQUE: Multisequence multiplanar MR images of the left femur were obtained without the administration of intravenous contrast. COMPARISON: None. FINDINGS Complete tear of the common hamstring tendon with retraction measuring up to 3 cm. Tendinopathy of the torn retracted common hamstring tendon fibers. Small amount of hemorrhage/edema within the tendon gap. Remaining major tendons about the left hip are intact. No focal bursal fluid collections. Negative for acute fracture or marrow replacement. Muscle bulk is symmetric and relatively preserved. MRI/Lower Ext/No Jt/w/o IMPRESSION: Ruptured common hamstring tendon with retraction measuring up to 3 cm. Reading Location: [facility]
== END | disposition home or self-care (01) ==
LOC: MRI 16:12
PROVIDERS: PCP Student in an Organized Health Care Education/Training Program; Referring Provider Orthopaedic Surgery Sports Medicine; Visit Provider Nurse Practitioner Family
DX: M25.552 Pain in left hip (principal); M79.18 Myalgia, other site; T14.8XXA Other injury of unspecified body region, initial encounter
CPT/HCPCS: 73718

== ENCOUNTER 2024-09-30 08:20 | Day surgery (SDC) | payer OTHER, MEDICAID, SELFPAY ==
[2024-09-30] VITALS (8 sets, daily range): BP systolic 102–124; BP diastolic 64–92; PULSE 69–89; RESP 16–18; TEMP 36.3–37.8; O2SAT 94–100; BMI 28.9
--- NOTE | 2024-09-30 09:15 | PRE.ANES_ITS ---
ASA Classification* ASA Classification ASA Classification: 2 Assessment & Plan Anesthesia* Anesthesia Assessment Anesthesia Assessment: Discussed sedation and/or anesthesia options, risks, benefits, and alternatives with patient/parents/legal guardian/POA. Questions invited. The patient/parents/legal guardian/POA seems to understand and agrees to proceed with anesthesia plan. Reviewed the physical assessment, medical history, allergy history and patient home medications list prior to surgery/procedure/anesthetic and documented any changes. Performed airway and anesthesia risk assessments. Anesthesia Type Anesthesia Type: Spinal (pt with some Astma symptoms, improving from URI 2 weeks ago. used inhaler this AM. clear lungs) Anesthesia Focused Assessment* Airway Assessment Mouth opens: >3 cm Mallampati Score: II Focused Labs Anesthesia Preop lab: CBC WBC 11.2 K/mm3 (4.4-11.0) H 11/09/23 12:45 4 RBC 4.75 M/mm3 (4.2-5.4) 11/09/23 12:45 11/09/23 Hgb 14.5 g/dL (12.0-15.0) 11/09/23 12:45 11/09/23 Hct 44.8 % (37-47) 11/09/23 12:45 11/09/23 Plt Count 303 K/mm3 (150-450) 11/09/23 12:45 11/09/23 CHEMISTRY Potassium 3.6 mmol/L (3.5-5.1) 12/11/13 13:24 12/11/13 Sodium 139 mmol/L (136-145) 12/11/13 13:12/11/13 BUN 7 mg/dL (7-18) 12/11/13 13:24 12/11/13 Creatinine 0.8 mg/dL (0.6-1.0) 12/11/13 13:12/11/13 Glucose 100 mg/dL (70-110) 12/11/13 13:24 12/11/13 TSH 0.88 uIU/mL (0.358-3.74) 04/06/12 12:21 2 COAG Pre-Assessment Diagnosis/Proposed Procedure Planned Operative Procedure(s): LEFT PROXIMAL HAMSTRING TENDON REPAIR Anesthesia History 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 When Was Last Pacemaker Check QUESTION #4 FULL TEXT: You/Your Family Experience fever (hyperthermia) with Anesthesia Last Oral Intake Last Oral intake: Last Oral Intake NPO since Meds taken in AM with sips of water? Meds patient instructed to take am of surgery PONV PONV - electronic prepress technician: PONV - electronic prepress technician Female Yes 09/26/24 10:44 HX of Motion Sickness Yes 09/26/24 10:44 HX of N/V After Surgery No 09/26/24 10:44 Non-Smoker No 09/26/24 10:44 Duration of Surgery greater Yes 09/26/24 10:44 than 60 minutes Number of Risk Factors 3 09/26/24 10:44 PONV Score Moderate Risk 09/26/24 10:44 Height & Weight Height & Weight: Anesthesia: Height & Weight Height 5 ft 3 in 09/19/24 11:03 Respiratory Assessment Respiratory Assessment - electronic prepress technician: Respiratory Tract Infection Hx - electronic prepress technician Hx Respiratory Tract Infection No 09/26/24 10:44 STOP Sleep Apnea STOP Sleep Apnea - electronic prepress technician: STOP Sleep Apnea - electronic prepress technician Hx Hypertension Yes: CONTROLLED WITH MEDS 09/26/24 10:44 Hx Sleep Apnea No 09/26/24 10:44 CPAP BIPAP Do you snore loudly (louder No 09/26/24 10:44 than talking or can be heard Do you often feel tired/ No 09/26/24 10:44 fatigued/ sleepy during daytime? Has anyone observed you stop No 09/26/24 10:44 breathing during sleep? STOP Results Negative 09/26/24 10:44 QUESTION #5 FULL TEXT : Do you snore loudly (louder than talking or can be heard through closed doors)? 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 Specify any problems Hx of Preganancy in last 3 No 09/26/24 10:44 Months Nurse Filling Out Transfusion DSCHRIBER 09/26/24 10:44 & Questions: Date: 09/26/24 09/26/24 10:44 Time: 10:46 09/26/24 10:44 Patient unable to answer at this time (ie. confused, unrespo /Reproduction History /Reproductive History - electronic prepress technician: /Reproductive Hx- electronic prepress technician Hx Now No 09/26/24 10:44 Gestational Age (in weeks): EDC: Hx Hx Para Hx Section SAB No 09/26/24 10:44 Active Medications Active Medications: Current Medications Generic Name Dose Route Start Last Admin Trade Name Freq PRN Reason Stop Dose Admin Cefazolin Sodium 2 gm/ N/A 20 mls @ 400 mls/hr 09/30/24 10:00 IV 09/30/24 10:02 PREOP ONE Sodium Chloride 1,000 mls @ 15 mls/hr 09/30/24 08:40 IV 10/05/24 21:59 .Q48H [facility] Protocol PFSH Medical History Wears partial dentures Easy bruising Leg cramps Left proximal hamstring tendon rupture Left hip pain Abdominal pain Contact with or exposure to other viral diseases URI (upper respiratory infection) Wears glasses Alcohol use Rheumatoid arthritis Arthritis Fatty liver Back pain Gastric reflux Smoker Chronic cough History of edema Hypertension History of stress test MVP (mitral valve prolapse) Post hysterectomy menopause Asthma Acid reflux Physical exam, pre-employment Home Medications ?Medication ?Instructions ?Recorded ?Last Taken ?Type ascorbate calcium (vitamin C) 500 500 mg PO BID 07/15/24 History mg tablet cyclobenzaprine 10 mg tablet 10 mg PO TID PRN muscle s pasm 02/21/23 Unknown History furosemide 20 mg tablet (Lasix) 20 mg PO BID 02/21/23 07/15/24 History ipratropium 0.5 mg-albuterol 3 mg 3 ml inhalation PRN PRN shortness 02/21/23 Unknown History (2.5 mg base)/3 mL nebulization of breath soln leflunomide 20 mg tablet (Arava) 20 mg PO QHS 02/21/23 09/11/24 History losartan 50 mg tablet 50 mg PO BID 02/21/23 History meloxicam 15 mg tablet 15 mg PO DAILY 02/21/2309/01 History metoprolol succinate 100 mg 100 mg PO QHS 02/21/23 History tablet,extended release 24 hr (Toprol XL) montelukast 10 mg tablet 10 mg PO QHS 02/21/23 History (Singulair) pseudoephedrine-guaifenesin ER 60 1 tab PO BID ALLERGI ES 02/21/23 07/15/24 History mg-600 mg tablet,extend release 12hr (Mucinex D) albuterol sulfate 90 mcg/actuation 1 inh inhalation WA N ALLERGIES 04/10/23 07/15/24 History aerosol inhaler amlodipine 10 mg tablet 10 mg PO DAILY 04/10/2310/22 History azelastine 137 mcg (0.1 %) nasal 1 spray intranasal BI D 04/10/23 07/15/24 History spray budesonide-formoterol HFA 160 2 inh inhalation BID 06/2209/30/24 History mcg-4.5 mcg/actuation aerosol inhaler cetirizine 10 mg tablet 10 mg PO BID 04/10/23 History cholecalciferol (vitamin D3) 25 25 mcg PO DAILY 07/15/24 History mcg (1,000 unit) tablet (Vitamin D3) conjugated estrogens 1.25 mg 1.25 mg PO DAILY 07/12/24 07/15/24 History tablet (Premarin) lansoprazole 15 mg capsule,delayed 30 mg PO BID 09/30/24 History release tocilizumab 162 mg/0.9 mL 162 mg subcut Q14D 07/12/24 09/11/24 History subcutaneous pen injector (Actemra ACTPen) umeclidinium 62.5 mcg-vilanterol 1 inh inhalation NATALYA Y 07/12/24 09/30/24 Histo ry 25 mcg/actuation powdr for inhalation (Anoro Ellipta) ursodiol 300 mg capsule 300 mg PO BID 30 days #60 ca ps 07/29/24 09/30/24 Rx naproxen 500 mg tablet (Naprosyn) 500 mg PO BID 08/27/24 History Allergy/AdvReac Type Severity Reaction Status Date / Time doxycycline Allergy Severe Angioedema Verified 09/30/24 09:00 Sulfa (Sulfonamide Allergy Severe Angioedema Verified 09/30/24 09:00 Antibiotics) Seasonal Allergies: Uncoded Allergy Mild SOB Verified 09/30/24 09:00 amoxicillin (From Augmentin) AdvReac Intermediate Diarrhea Verified 09/30/24 09:00 clavulanic acid (From AdvReac Intermediate Diarrhea Verified 09/30/24 09:00 Augmentin) Surgical History History of Luis fundoplication Hx of colonoscopy Hx of tubal ligation Hx laparoscopic cholecystectomy History of esophagogastroduodenoscopy (EGD) History of tonsillectomy Hx of hysterectomy Total knee replacement status Social History Smoking Status: Current every day smoker tobacco type: cigarettes alcohol intake: current alcohol intake frequency: holidays/special occasions only substance use type: does not use Review of Systems (Anesthesia) ROS Narrative System reviewed and no additional complaints, except as documented.
[2024-09-30] MEDS: 0.9% Normal Saline (1000mL) 1,000 ML 15 ML IV (09:29)
--- NOTE | 2024-09-30 11:06 | PCM.HP.STD ---
HPI - General HPI Narrative KIMBERLY STEPHENS, is a 49 F who presents for L proximal hamstrings repair. no change to h and p. ok to proceed. rab, post op instructions (knee brace) and narcotic conselling done. L posterior hip marked. no further questions. MR#: [id number] Acct: [id number] Name: KIMBERLY STEPHENS Rep #: [id number] : 1975 Provider: Dr. Griffin Granados MD Age/Sex: 49/F Location: [facility] [place] Status: Signed Intake Vital Signs 08/29/2509:52 09/19/2510:03 Height 5 ft 3 in 5 ft 3 in Intake Visit Reasons: LEFT HIP Chief Complaint: Left hip Allergies doxycycline Allergy (Severe, Verified 09/20/24 08:55) AngioedemaSulfa (Sulfonamide Antibiotics) Allergy (Severe, Verified 09/20/24 08:55) AngioedemaSeasonal Allergies: Uncoded Allergy (Mild, Verified 09/20/24 08:55) SOBamoxicillin (From Augmentin) Adverse Reaction (Intermediate, Verified 09/20/24 08:55) Diarrheaclavulanic acid (From Augmentin) Adverse Reaction (Intermediate, Verified 09/20/24 08:55) Diarrhea Medications ?Medication ?Instructions ?Recorded ?Confirmed ?Type ascorbate calcium (vitamin C) 500 500 mg PO BID 02/21/23 09/20/24 History mg tablet cyclobenzaprine 10 mg tablet 10 mg PO TID PRN muscle spasm 02/21/23 09/20/24 History furosemide 20 mg tablet (Lasix) 20 mg PO BID 02/21/23 09/20/24 History ipratropium 0.5 mg-albuterol 3 mg 3 ml inhalation PRN PRN shortness 02/21/23 09/20/24 History (2.5 mg base)/3 mL nebulization of breath soln leflunomide 20 mg tablet (Arava) 20 mg PO DAILY 02/21/23 09/20/24 History losartan 50 mg tablet 50 mg PO BID 02/21/23 09/20/24 History meloxicam 15 mg tablet 15 mg PO DAILY 02/21/23 09/20/24 History metoprolol succinate 100 mg 100 mg PO QHS 07/25/23 02/21/25 History tablet,extended release 24 hr (Toprol XL) montelukast 10 mg tablet 10 mg PO DAILY 02/21/23 09/20/24 History (Singulair) pseudoephedrine-guaifenesin ER 60 1 tab PO BID PRN ALLERGIES 02/21/23 09/20/24 History mg-600 mg tablet,extend release 12hr (Mucinex D) albuterol sulfate 90 mcg/actuation 1 inh inhalation PRN ALLERGIES 04/10/23 09/20/24 History aerosol inhaler amlodipine 10 mg tablet 10 mg PO DAILY 04/10/23 09/20/24 History azelastine 137 mcg (0.1 %) nasal 1 spray intranasal BID 04/10/23 09/20/24 History spray budesonide-formoterol HFA 160 2 inh inhalation BID 04/10/23 09/20/24 History mcg-4.5 mcg/actuation aerosol inhaler cetirizine 10 mg tablet 10 mg PO BID 04/10/23 09/20/24 History cholecalciferol (vitamin D3) 25 25 mcg PO DAILY 07/12/24 09/20/24 History mcg (1,000 unit) tablet (Vitamin D3) conjugated estrogens 1.25 mg 1.25 mg PO DAILY 07/12/24 09/20/24 History tablet (Premarin) lansoprazole 15 mg capsule,delayed 30 mg PO DAILY 07/12/24 09/20/24 History release tocilizumab 162 mg/0.9 mL 162 mg subcut Q14D 07/12/24 09/20/24 History subcutaneous pen injector (Actemra ACTPen) umeclidinium 62.5 mcg-vilanterol 1 inh inhalation DAILY 07/12/24 09/20/24 History 25 mcg/actuation powdr for inhalation (Anoro Ellipta) ursodiol 300 mg capsule 300 mg PO BID 30 days #60 caps 07/29/24 09/20/24 Rx naproxen 500 mg tablet (Naprosyn) 500 mg PO BID 08/29/24 09/20/24 History PFSH Medical History Left proximal hamstring tendon rupture Left hip pain Abdominal pain Contact with or exposure to other viral diseases URI (upper respiratory infection) Wears glasses Alcohol use History of steroid therapy Rheumatoid arthritis Arthritis Fatty liver Back pain History of hiatal hernia Gastric reflux Smoker Chronic cough History of edema Hypertension History of stress test MVP (mitral valve prolapse) Post hysterectomy menopause Asthma Acid reflux Physical exam, pre-employment Surgical History History of Luis fundoplication Hx of colonoscopy Hx of tubal ligation Hx laparoscopic cholecystectomy History of esophagogastroduodenoscopy (EGD) History of tonsillectomy Hx of hysterectomy Total knee replacement status Social History Smoking Status: Current every day smoker tobacco type: cigarettes alcohol intake: current alcohol intake frequency: holidays/special occasions only substance use type: does not use HPI LEFT HIP Details: This documentation accurately reflects the service provided and the decisions made by me, Dr. Griffin Granados MD 09/20/24 0807. Part of today?s visit was documented by [ ], acting as scribe. KIMBERLY STEPHENS is a 49 year old F here today for office follow-up visit to proceed with signing the paperwork for repair of the left proximal hamstrings tendon tear. Supplemental Info Complete tear of the common hamstring tendon with retraction measuring up to 3 cm. Tendinopathy of the torn retracted common hamstring tendon fibers. Small amount of hemorrhage/edema within the tendon gap. Remaining major tendons about the left hip are intact. No focal bursal fluid collections. Negative for acute fracture or marrow replacement. Muscle bulk is symmetric and relatively preserved. Coding Level of Care Code Off vis,est,level 4 Diagnoses Left proximal hamstring tendon rupture S76.312A Assessment and Plan Assessment and Plan (1) Left proximal hamstring tendon rupture: Status: Acute Plan: 49-year-old female with a complete tear with 3 cm retraction left proximal hamstring tendon from the ischial tuberosity. Explained the pros cons risk benefits of conservative management physical therapy rest ice anti-inflammatories and activity modifications compared to surgical repair. Specific risk of surgery would be irritation or damage to the sciatic nerve other structures surrounding repeat tear stiffness pain bleeding and other risks. The patient wants to go ahead with left proximal hamstrings tendon repair. Recovery 3 to 4 months and limited hip flexion for the first 6 weeks with a partial weightbearing on crutches for the first few weeks as well. The patient understands no further questions wants to go ahead we will try to get this done and under the 6 weeks magali since the injury. Patient has rheumatoid arthritis on biologic medications typically they would hold that for couple weeks before surgery they will not take her next dose and we will get a clearance from the rheumatology physician as well with regards to specific guidance on that medication before proceeding. This can increase the risks of surgery including delayed union of the tendon repair site repeat injuries or infections. Pros and cons risks and benefits were discussed with the patient including but not limited to infection, pain, stiffness, bleeding, damage to surrounding structures, neurovascular injury, recurrence or retear, failure or wear of hardware or fixation, instability, fracture, deep vein thrombosis and pulmonary embolism, anesthetic risks, , patient dissatisfaction, need for further surgery and other risks. Patient understood and wished to proceed with surgery, and signed the informed consent documentation. Ortho Exam General General: Yes no acute distress Neurologic: Yes alert and Yes oriented x3 Psychologic: Yes reasonable and appropriate [facility] Medical History Wears partial dentures Easy bruising Leg cramps Left proximal hamstring tendon rupture Left hip pain Abdominal pain Contact with or exposure to other viral diseases URI (upper respiratory infection) Wears glasses Alcohol use Rheumatoid arthritis Arthritis Fatty liver Back pain Gastric reflux Smoker Chronic cough History of edema Hypertension History of stress test MVP (mitral valve prolapse) Post hysterectomy menopause Asthma Acid reflux Physical exam, pre-employment Home Medications ?Medication ?Instructions ?Recorded ?Last Taken ?Type ascorbate calcium (vitamin C) 500 500 mg PO BID 02/21/23 07/15/24 History mg tablet cyclobenzaprine 10 mg tablet 10 mg PO TID PRN muscle spasm 02/21/23 Unknown History furosemide 20 mg tablet (Lasix) 20 mg PO BID 02/21/23 07/15/24 History ipratropium 0.5 mg-albuterol 3 mg 3 ml inhalation PRN PRN shortness 02/21/23 Unknown History (2.5 mg base)/3 mL nebulization of breath soln leflunomide 20 mg tablet (Arava) 20 mg PO QHS 02/21/23 09/11/24 History losartan 50 mg tablet 50 mg PO BID 02/21/23 09/30/24 History meloxicam 15 mg tablet 15 mg PO DAILY 02/21/23 09/23/24 History metoprolol succinate 100 mg 100 mg PO QHS 02/21/23 07/15/24 History tablet,extended release 24 hr (Toprol XL) montelukast 10 mg tablet 10 mg PO QHS 02/21/23 07/15/24 History (Singulair) pseudoephedrine-guaifenesin ER 60 1 tab PO BID ALLERGIES 02/21/23 07/15/24 History mg-600 mg tablet,extend release 12hr (Mucinex D) albuterol sulfate 90 mcg/actuation 1 inh inhalation PRN ALLERGIES 04/10/23 07/15/24 History aerosol inhaler amlodipine 10 mg tablet 10 mg PO DAILY 04/10/23 09/30/24 History azelastine 137 mcg (0.1 %) nasal 1 spray intranasal BID 04/10/23 07/15/24 History spray budesonide-formoterol HFA 160 2 inh inhalation BID 04/10/23 09/30/24 History mcg-4.5 mcg/actuation aerosol inhaler cetirizine 10 mg tablet 10 mg PO BID 04/10/23 07/15/24 History cholecalciferol (vitamin D3) 25 25 mcg PO DAILY 07/12/24 07/15/24 History mcg (1,000 unit) tablet (Vitamin D3) conjugated estrogens 1.25 mg 1.25 mg PO DAILY 07/12/24 07/15/24 History tablet (Premarin) lansoprazole 15 mg capsule,delayed 30 mg PO BID 07/12/24 09/30/24 History release tocilizumab 162 mg/0.9 mL 162 mg subcut Q14D 07/12/24 09/11/24 History subcutaneous pen injector (Actemra ACTPen) umeclidinium 62.5 mcg-vilanterol 1 inh inhalation DAILY 07/12/24 09/30/24 History 25 mcg/actuation powdr for inhalation (Anoro Ellipta) ursodiol 300 mg capsule 300 mg PO BID 30 days #60 caps 07/29/24 09/30/24 Rx naproxen 500 mg tablet (Naprosyn) 500 mg PO BID 08/29/24 08/27/24 History Allergy/AdvReac Type Severity Reaction Status Date / Time doxycycline Allergy Severe Angioedema Verified 09/30/24 09:00 Sulfa (Sulfonamide Allergy Severe Angioedema Verified 09/30/24 09:00 Antibiotics) Seasonal Allergies: Uncoded Allergy Mild SOB Verified 09/30/24 09:00 amoxicillin (From Augmentin) AdvReac Intermediate Diarrhea Verified 09/30/24 09:00 clavulanic acid (From AdvReac Intermediate Diarrhea Verified 09/30/24 09:00 Augmentin) Surgical History History of Luis fundoplication Hx of colonoscopy Hx of tubal ligation Hx laparoscopic cholecystectomy History of esophagogastroduodenoscopy (EGD) History of tonsillectomy Hx of hysterectomy Total knee replacement status Social History Smoking Status: Current every day smoker tobacco type: cigarettes alcohol intake: current alcohol intake frequency: holidays/special occasions only substance use type: does not use Vital Signs Vital Signs Vital Signs: 09/30/24 09:06 09/30/24 09:06 Temperature 98.9 F Temperature Source Temporal Pulse Rate 83 Respiratory Rate 16 Respiratory Pattern Normal Blood Pressure 124/70 H Blood Pressure Mean 88 Blood Pressure Source Monitor Blood Pressure Position Semi-Fowlers Blood Pressure Location Right Arm Pulse Ox 97 Oxygen Delivery Method Room Air Weight Weight: 163 lb 5.8 oz Body Mass Index (BMI) 28.9
[2024-09-30] MEDS: Cefazolin 2 GM in Syringe IV (11:32)
[2024-09-30] MEDS: Bupivacaine 0.25% 30 ML Vial (12:37)
--- NOTE | 2024-09-30 12:46 | OP.PCM_ITS ---
Problems Associated Problem List Diagnoses (1) Left proximal hamstring tendon rupture: Procedures Musculoskeletal [id number]-29xxx: Other Procedure See Report Operative Report (Standard) Operative Information Date of Procedure: 09/30/24 Pre-Operative Diagnosis: L proximal hamstrings tear Post-Operative Diagnosis: same Surgery/Procedure Performed: L proximal hamstrings repair turret punch operator: Miesha Sales And Marketing Specialist: talia Tasks completed by permit review assistant: Retracting Additional carpenter assistant installer?: No Type of Anesthesia: Local and Spinal RN Documented Start/Stop Times: Operation Date: 09/30/24 10:00 Case Time Into Pre-Op 09/30/24 08:37 Anesthesia Start 09/30/24 11:32 Into Room 09/30/24 11:32 Procedure Start 09/30/24 11:50 Procedure End 09/30/24 12:42 Procedure Start Time: 11:50 Procedure Stop Time: 12:42 Select all DRAINS/GRAFTS/IMPLANTS that apply: Implanted device Implanted device details: 4 x arthrex 4.75mm swivelock anchors Estimated Blood Loss: 25 Specimen collected: No Description of surgery: Patient brought to the operating room theater. Placed supine on the table. Spinal anesthetic administered. All bony prominences padded. SCD on the nonoperative leg. Sedation administered. Patient placed prone on the table. Small bump under the hip. 2 g IV Ancef administered prior to the start of the case. Lower extremity at the proximal ischial tuberosity prepped and draped in usual sterile fashion with split sheets following over 3 minutes drying time prior to draping. Preoperative timeout performed to confirm the site patient and surgery. Began by palpating the ischial tuberosity as well as the defect of the tendon. Made a longitudinal incision about 4 inches centered over the proximal hamstrings origin. Carried the dissection down through skin and subcutaneous tissue achieved meticulous hemostasis. Identified the plane between the gluteus shabnam muscle and the proximal hamstrings developed that, retracted gluteus maximum superiorly. Identified the sciatic nerve laterally. Protected that slight retraction laterally. Then identified the proximal end of the hamstrings and then made a small transverse incision at the ischial tuberosity evacuated the hematoma and seroma there. The tendon was indeed retracted 3 cm. There was 2 good tendinous stumps. I freed up some mild adhesions there that had developed. I then turned my attention to the tuberosity of the lateral facet. I used curettes and rongeur's to prepare a nice bleeding bed for healing. I then used the trocar to perform multiple taps for bleeding healing bed punctate bleeding. I then used the Arthrex proximal hamstrings kit a speed bridge technique. I drilled and tapped. 4 holes to create a square shape with 4 corners for the 4 anchors. At the inferior most aspect of the facet I placed the 2 anchors these had good purchase in the bone. I then removed the stay sutures I split the fiber tape sutures so that I could get 4 good bites into the tendinous aspect of the proximal hamstrings. I then crisscrossed the suture anchors and placed them into 2 more swivel lock anchors at the superficial area of the lateral facet. This achieved a good compression of the footprint back to the ischial tuberosity. Sciatic nerve again palpated felt to be continuity. Thoroughly irrigated using normal saline. Subcutaneous tissue closed with 2-0 Vicryl suture and skin with 3-0 Monocryl. Skin cleaned with wet dry dressing 10 cc of quarter percent bupivacaine instilled in around the soft tissues. Steri-Strips Adaptic 4 x 4 gauze ABD dressing cloth tape was then applied with the knee brace and 40 degrees of flexion. Patient woken up transferred off the operating table taken to postanesthetic care unit in stable condition. All sponge needle instrument counts were correct no complications plan for the patient toe-touch weightbearing with crutches follow-up in the office within 2 weeks time. CPT 08106 Surgical Findings: as above Complications Complications: No Admit VTE Documentation VTE Present on Admission: No VTE Mechan Device Prophylaxis: SCD's VTE Pharm Prophylaxis ordered?: Yes
--- NOTE | 2024-09-30 12:55 | PCM.POST.ANE ---
Anesthesia: Postop Eval I Current Vital Signs Temperature: 98.3 F Pulse Rate: 80 Blood Pressure: 107/65 Respiratory Rate: 16 Pulse Ox: 98 Assessment Airway patent: Yes Spontaneous unlabored respirations: Yes nausea: No Vomiting: No Anesthesia Complication: No Fluid Hydration Crystalloid volume administer (ml): 1,000 Total IV fluid infused: 1,000 Progress Note Anesthesia document: Postop Eval 1 completed: Yes
--- NOTE | 2024-09-30 12:55 | EX.PCM.DISCH ---
Discharge Instructions Diet Discharge Diet: No restrictions Activity Discharge Activity: Use Crutches (toe touch weight bearing with knee brace at 40 degrees) Ice area for (Minutes): 10 Weight Bearing Status: Toe touch weight bearing Additional Activity Instructions:: try not to lay on the incision Dressing / Incision Call your doctor if your incision/area has: Continuous Slow Oozing, Sudden Increased Bleeding, Increased Pain/ Swelling, Increased Redness, Foul Smelling Discharge and Swelling at the incision site Call your doctor if you observe: Fever of 101 or Higher, Coldness, Increased Pain and Numbness or Tingling Remove Dressing in: leave in place till F/U Cleanse incision/area with: Do not get Incision Wet Follow Up Care Please Follow Up With: Griffin Granados MD When: within 2 weeks Test Results: Test results from this visit will be discussed in further detail at your follow-up appointment, if applicable. Discharge Plan Admission Attending Provider: Griffin Granados Primary Care Provider: Jai Posada Instructions Print Language: Sudanese Discharge Orders/Prescriptions Prescriptions: New oxycodone-acetaminophen [Endocet] 5-325 mg tablet 1 tab PO Q4H MDD 6 PRN (Reason: pain) 5 Days Qty: 20 0RF No Action cyclobenzaprine 10 mg tablet 10 mg PO TID PRN (Reason: muscle spasm) furosemide [Lasix] 20 mg tablet 20 mg PO BID pseudoephedrine-guaifenesin [Mucinex D] 60-600 mg tablet extended release 12 hr 1 tab PO BID ipratropium-albuterol 0.5 mg-3 mg(2.5 mg base)/3 mL solution for nebulization 3 ml inhalation PRN PRN (Reason: shortness of breath) leflunomide [Arava] 20 mg tablet 20 mg PO QHS losartan 50 mg tablet 50 mg PO BID meloxicam 15 mg tablet 15 mg PO DAILY metoprolol succinate [Toprol XL] 100 mg tablet extended release 24 hr 100 mg PO QHS montelukast [Singulair] 10 mg tablet 10 mg PO QHS ascorbate calcium (vitamin C) 500 mg tablet 500 mg PO BID naproxen [Naprosyn] 500 mg tablet 500 mg PO BID amlodipine 10 mg tablet 10 mg PO DAILY budesonide-formoterol 160-4.5 mcg/actuation HFA aerosol inhaler 2 inh INHALATION BID albuterol sulfate 90 mcg/actuation HFA aerosol inhaler 1 inh INHALATION PRN cetirizine 10 mg tablet 10 mg PO BID azelastine 137 mcg (0.1 %) aerosol,spray 1 spray INTRANASAL BID Actemra ACTPen 162 mg/0.9 mL pen injector 162 mg subcut Q14D lansoprazole 15 mg capsule,delayed release(DR/EC) 30 mg PO BID Anoro Ellipta 62.5-25 mcg/actuation blister with device 1 inh inhalation DAILY Premarin 1.25 mg tablet 1.25 mg PO DAILY cholecalciferol (vitamin D3) [Vitamin D3] 25 mcg (1,000 unit) tablet 25 mcg PO DAILY ursodiol 300 mg capsule 300 mg PO BID 30 Days Qty: 60 1RF Referrals / Follow Up: Jai Posada DO [Primary Care Provider] - Griffin Granados MD [Med Staff - Active Staff] - Disposition Disposition (needs filled in before D/C Order can be placed): Home, Self Care
[2024-09-30] MEDS: Albuterol 2.5 MG/3 ML VIAL.NEB. INHALATION (13:02)
--- NOTE | 2024-09-30 13:37 | POSTOPAN2_ITS ---
Anesthesia Postop Eval I Sum Postop Eval Completion status Anesthesia document: Postop Eval 1 completed: Yes Anesthesia Postop Eval I Summary Anesthesia Postop Eval I Summary: Anesthesia Postop Eval I: Assessment Summary Airway patent Yes 09/30/24 12:55 [email or web address] Spontaneous unlabored Yes 09/30/24 12:55 [email or web address] [email or web address] respirations Mental status nausea No 09/30/24 12:55 [email or web address] [email or web address] Vomiting No 09/30/24 12:55 [email or web address] Anesthesia Postop Eval I: Fluid Summary Crystalloid volume administer 1,000 09/30/24 12:55 [email or web address] (ml) Colloids volume administered ( ml) Blood Product volume administered (ml) Total IV fluid infused 1,000 09/30/24 12:55 [email or web address] Anesthesia Postop Eval I: Summary Notes Anesthesia Complication No 09/30/24 12:55 [email or web address] Anesthesia Complication Comment: Post-operative progress note Anesthesia: Postop Eval II Evaluation Mental status: Awake Pain Level: 2 nausea: No Vomiting: No
--- NOTE | 2024-09-30 13:37 | PCM.POSTANE2 ---
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 Spontaneous unlabored Yes 09/30/24 12:55 [email or web address] respirations Mental status nausea No 09/30/24 12:55 [email or web address] [email or web address] Vomiting No 09/30/24 12:55 [email or web address] Anesthesia Postop Eval I: Fluid Summary Crystalloid volume administer 1,000 09/30/24 12:55 [email or web address] (ml) Colloids volume administered ( ml) Blood Product volume administered (ml) Total IV fluid infused 1,000 09/30/24 12:55 [email or web address] Anesthesia Postop Eval I: Summary Notes Anesthesia Complication No 09/30/24 12:55 [email or web address] Anesthesia Complication Comment: Post-operative progress note Anesthesia: Postop Eval II Evaluation Mental status: Awake Pain Level: 2 nausea: No Vomiting: No
--- NOTE | 2024-09-30 17:06 | PCM.PN.ORT ---
Objective Data Objective Data Vital Signs: Vital Signs Temp Pulse Resp BP Pulse Ox O2 Del Method 98.5 F 89 16 105/64 98 Room Air 09/30/24 15:25 09/30/24 15:25 09/30/24 15:25 09/30/24 15:25 09/30/24 15:25 09/30/24 15:25 Oxygen Delivery Method Room Air Weight: 163 lb 5.8 oz Body Mass Index (BMI) 28.9 Intake & Output: Intake and Output for Last 24 Hours 09/28/24 09/29/24 09/30/24 23:59 23:59 23:59 Intake Total Balance Assessment & Plan Assessment/Plan (1) Left proximal hamstring tendon rupture: PLAN: Sciatic working normally post op once spinal wore off. normal sensation L foot and df and PF the foot.
== END 2024-09-30 15:26 | disposition home or self-care (01) ==
LOC: SDC 08:22 → AC 08:23
PROVIDERS: PCP Student in an Organized Health Care Education/Training Program; Referring Provider Orthopaedic Surgery Sports Medicine; Visit Provider Orthopaedic Surgery Sports Medicine
PROC: (CPT 27385; principal; 2024-09-30 09:45)
DX: S76.312A Strain of muscle, fascia and tendon of the posterior muscle group at thigh level, left thigh, initial encounter (principal); M06.9 Rheumatoid arthritis, unspecified; X58.XXXA Exposure to other specified factors, initial encounter; I10 Essential (primary) hypertension; I34.1 Nonrheumatic mitral (valve) prolapse; K21.9 Gastro-esophageal reflux disease without esophagitis; F17.210 Nicotine dependence, cigarettes, uncomplicated; J45.909 Unspecified asthma, uncomplicated; Z88.0 Allergy status to penicillin; Z88.2 Allergy status to sulfonamides; Z88.1 Allergy status to other antibiotic agents; Z79.899 Other long term (current) drug therapy
CPT/HCPCS: 27385; C1713

== ENCOUNTER 2025-01-09 10:00 | Outpatient (RCR) | payer OTHER, MEDICAID, SELFPAY ==
--- NOTE | 2024-11-12 11:12 | HP.PTEVAL_ITS ---
Patient's Visit Information Visit Information Visit Information: KIMBERLY STEPHENS is a 49 year old F referred to Physical Therapy by Dr. Griffin Granados MD with a diagnosis of strain of muscle,facsia and tendon of posterior muscle group thigh level. Date of Evaluation: 11/12/24 Physical Therapist: Feliciano Layne, PT, Cert MDT, OCS Visit Plan Frequency: 2x /Week Duration: 12 WEEKS Plan: S/P PROXIMAL HAMSTRINGS REPAIR 09/30/24 *okay to start some gentle range of motion gradual light strengthening progressing over the next 6 weeks and follow-up in 2 months * PT INTERVENTIONS ISOMETRICS HAMSTRINGS ,GENTLE STRETCHING HAMSTRINGS , GRADUAL LIGHT STRENGTHENING QUADS/HAMS/HIP ,FUNCTIONAL STRENGTHENING , AND MANUAL THERAPY STICK/STM HAMSTRINGS . Subjective Subjective: This 49 y/o female presents to physical therapy left hamstrings proximal hamstring tendon rupture.Patient underwent s/p left proximal hamstrings repair on 09/30/24 at [facility]. Patient d/c DOS with brace and crutches with TDWB left for [address]. [address] 2 weeks later and was 50% brace and crutches, On 11/11/24 ,patient seen DR and removed brace and no crutches with FWB. RTD in 2 months January 13. okay to start some gentle range of motion gradual light strengthening progressing over the next 6 weeks and follow-up in 2 months time. No medication. Patient tore proximal hamstrings Aug 22 ,kicking show ,felt pop . Eventually ,had MRI September 13 showed hamstring torn. Patient patient tenderness proximal hamstrings. Patient c/o knee giving way weakness. Doing one step at time. Sleeping good. Denies paresthesia/tingling. Patient condition affects QOL/function and RTW. No RTW date. Patient goals to RTW and normal activity w/o pain. 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 Left Buttocks: Pain Intensity (Out of 10): 4 Pain Intensity Range: 10 Comment: HAMSTRINGS -PROXIMAL HAMSTRINGS Objective Objective: POSTURE: mild forward posture GAIT: ambulates with reciprocal left LE decrease stance time PALPATION: tender ischial tuberosity NEURO: c/o paresthesia ischial tuberosity AROM: supine knee flexion 0-140 degrees PROPRIOCEPTION : decreased left to right FLEXABILITY: hamstrings min/mod tightness MMT: ( peak force) left quads 12.7 ,hamstrings 6.6 ,hip flexion 13.8 ,hip abd 11.7 STAIRS: one step at time with rail Balance/Special Test Scores Lower Extremity Functional Score: 20 Goals Goal 1:: Patient to be I with HEP for hamstrings repair Goal Time Frame: 8-12 Weeks Goal 2:: Patient to normalize gait pattern community on level and unlevel surfaces . Goal Time Frame: 8-12 Weeks Goal 3:: This patient to improve peak force strength 10# to improve gait . Goal Time Frame: 8-12 Weeks Goal 4:: Patient to demonstrate 70% improvement with function/housework task and gait Goal Time Frame: 8-12 Weeks Goal 5:: Patient improve LFES score by 10 points to improve function and QOL. Goal Time Frame: 8-12 Weeks Rehabilitation Potential Physical Therapy Diagnosis: Patient tore proximal hamstrings 08/22/24 and underwent s/p left proximal hamstring repair 09/30 at [facility] with progression of WB and weaned from crutches and brace ,currently has impairments with gait ,weakness ,proprioception and stairs thus benefit from skilled PT Rehabilitation Potential: Good Anticipated Interventions Patient/Client Instruction: Educate patient on: Condition and Plan of Care For the Purpose of:: To decrease pain, To increase ROM, To improve muscle performance and motor function, To increase tolerance to activity/condition/position, To improve performance and independence with ADL's, To improve ability of physical actions for home/community/work/leisure, To improve gait and locomotor functions, To improve health of tissue, To decrease soft tissue restriction, To increase flexibility/ROM, To improve endurance, To improve balance and To improve tolerance to ADL's Therapeutic Exercise to Include: Strength training, Endurance training, Balance training, Flexibilty training and Active ROM Comment: QUADS/HAMS/HIP For the Purpose of:: To decrease pain, To increase ROM, To improve muscle performance and motor function, To improve ability to perform ADL's, To increase tolerance to activity/condition/position, To improve ability of physical actions for home/community/work/leisure, To improve gait and locomotor functions, To improve health of tissue, To decrease soft tissue restriction, To increase flexibility/ROM, To improve endurance and To improve balance Manual Therapy Techniques to Include: Soft tissue mobilization Comment: STICK HAMSTRINGS For the Purpose of:: To decrease pain, To increase ROM, To improve nutrient delivery to tissue, To increase oxygenation perfusion, To improve health of tissue and To decrease soft tissue restriction Text: Thank you for the opportunity to evaluate your patient. For Medicare and Medicare HMO plans, please review the plan of care and approve it. It will need to be FAXED BACK to us at [phone] for Medicare purposes. For Medicare only, by signing this I certify the plan of care. Please let me know if there are questions or concerns regarding this plan of care. Physician Signature: Date:
--- NOTE | 2024-12-17 10:31 | HP.PTEVAL_ITS ---
Patient's Visit Information Visit Information Visit Information: KIMBERLY STEPHENS is a 49 year old F referred to Physical Therapy by Dr. Griffin Granados MD with a diagnosis of strain of muscle,facsia and tendon of posterior muscle group thigh level. Date of Evaluation: 11/12/24 Physical Therapist: Feliciano Layne, PT, Cert MDT, OCS Visit Plan Frequency: 2x /Week Duration: 12 WEEKS Plan: S/P PROXIMAL HAMSTRINGS REPAIR 09/30/24 *okay to start some gentle range of motion gradual light strengthening progressing over the next 6 weeks and follow-up in 2 months * PT INTERVENTIONS ISOMETRICS HAMSTRINGS ,GENTLE STRETCHING HAMSTRINGS , GRADUAL LIGHT STRENGTHENING QUADS/HAMS/HIP ,FUNCTIONAL STRENGTHENING , AND MANUAL THERAPY STICK/STM HAMSTRINGS . Subjective Subjective: This 49 y/o female presents to physical therapy left hamstrings proximal hamstring tendon rupture.Patient underwent s/p left proximal hamstrings repair on 09/30/24 at [facility]. Patient d/c DOS with brace and crutches with TDWB left for [address]. [address] 2 weeks later and was 50% brace and crutches, On 11/11/24 ,patient seen DR and removed brace and no crutches with FWB. RTD in 2 months January 13. okay to start some gentle range of motion gradual light strengthening progressing over the next 6 weeks and follow-up in 2 months time. No medication. Patient tore proximal hamstrings Aug 22 ,kicking show ,felt pop . Eventually ,had MRI September 13 showed hamstring torn. Patient patient tenderness proximal hamstrings. Patient c/o knee giving way weakness. Doing one step at time. Sleeping good. Denies paresthesia/tingling. Patient condition affects QOL/function and RTW. No RTW date. Patient goals to RTW and normal activity w/o pain. 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 Buttocks: Pain Intensity (Out of 10): 2 Pain Intensity Range: 10 Comment: Burning pain Objective Objective: POSTURE: mild forward posture GAIT: ambulates with reciprocal left LE decrease stance time PALPATION: tender ischial tuberosity NEURO: c/o paresthesia ischial tuberosity AROM: supine knee flexion 0-140 degrees PROPRIOCEPTION : decreased left to right FLEXABILITY: hamstrings min/mod tightness MMT: ( peak force) left quads 12.7 ,hamstrings 6.6 ,hip flexion 13.8 ,hip abd 11.7 STAIRS: one step at time with rail Balance/Special Test Scores Lower Extremity Functional Score: 33 Goals Goal 1:: Patient to be I with HEP for hamstrings repair Goal Time Frame: 8-12 Weeks Goal 2:: Patient to normalize gait pattern community on level and unlevel surfaces . Goal Time Frame: 8-12 Weeks Goal 3:: This patient to improve peak force strength 10# to improve gait . Goal Time Frame: 8-12 Weeks Goal 4:: Patient to demonstrate 70% improvement with function/housework task and gait Goal Time Frame: 8-12 Weeks Goal 5:: Patient improve LFES score by 10 points to improve function and QOL. Goal Time Frame: 8-12 Weeks Rehabilitation Potential Physical Therapy Diagnosis: Patient tore proximal hamstrings 08/22/24 and underwent s/p left proximal hamstring repair 09/30 at [facility] with progression of WB and weaned from crutches and brace ,currently has impairments with gait ,weakness ,proprioception and stairs thus benefit from skilled PT Rehabilitation Potential: Good Anticipated Interventions Patient/Client Instruction: Educate patient on: Condition and Plan of Care For the Purpose of:: To decrease pain, To increase ROM, To improve muscle performance and motor function, To increase tolerance to activity/conditi on/position, To improve performance and independence with ADL's, To improve ability of physical actions for home/community/work/leisure, To improve gait and locomotor functions, To improve health of tissue, To decrease soft tissue restriction, To increase flexibility/ROM, To improve endurance, To improve balance and To improve tolerance to ADL's Therapeutic Exercise to Include: Strength training, Endurance training, Balance training, Flexibilty training and Active ROM Comment: QUADS/HAMS/HIP For the Purpose of:: To decrease pain, To increase ROM, To improve muscle performance and motor function, To improve ability to perform ADL's, To increase tolerance to activity/condition/position, To improve ability of physical actions for home/community/work/leisure, To improve gait and locomotor functions, To improve health of tissue, To decrease soft tissue restriction, To increase flexibility/ROM, To improve endurance and To improve balance Manual Therapy Techniques to Include: Soft tissue mobilization Comment: STICK HAMSTRINGS For the Purpose of:: To decrease pain, To increase ROM, To improve nutrient delivery to tissue, To increase oxygenation perfusion, To improve health of tissue and To decrease soft tissue restriction Text: Thank you for the opportunity to evaluate your patient. For Medicare and Medicare HMO plans, please review the plan of care and approve it. It will need to be FAXED BACK to us at [phone] for Medicare purposes. For Medicare only, by signing this I certify the plan of care. Please let me know if there are questions or concerns regarding this plan of care. Physician Signature: Date:
--- NOTE | 2025-04-02 08:49 | HP.PT.NRP ---
Patient Information Patient Information: KIMBERLY STEPHENS was seen in my office for initial evaluation on 11/12/24. The following Plan of Care was established for this patient: POC Established Initial Frequency: 2x /Week Initial Duration: 12 WEEKS Anticipated Interventions Patient/Client Instruction: Educate patient on: Condition and Plan of Care For the Purpose of:: To decrease pain, To increase ROM, To improve muscle performance and motor function, To increase tolerance to activity/condition/position, To improve performance and independence with ADL's, To improve ability of physical actions for home/community/work/leisure, To improve gait and locomotor functions, To improve health of tissue, To decrease soft tissue restriction, To increase flexibility/ROM, To improve endurance, To improve balance and To improve tolerance to ADL's Therapeutic Exercise to Include: Strength training, Endurance training, Balance training, Flexibilty training and Active ROM For the Purpose of:: To decrease pain, To increase ROM, To improve muscle performance and motor function, To improve ability to perform ADL's, To increase tolerance to activity/condition/position, To improve ability of physical actions for home/community/work/leisure, To improve gait and locomotor functions, To improve health of tissue, To decrease soft tissue restriction, To increase flexibility/ROM, To improve endurance and To improve balance Manual Therapy Techniques to Include: Soft tissue mobilization Comment: STICK HAMSTRINGS For the Purpose of:: To decrease pain, To increase ROM, To improve nutrient delivery to tissue, To increase oxygenation perfusion, To improve health of tissue and To decrease soft tissue restriction Last Seen Last Seen: This patient was last seen in our office . Pertinent comments regarding their Physical therapy will appear below: Patient seen for hamstring repair. Thus had MRI and restore hamstrings At this point I will be discontinuing this patient from physical therapy. I would be happy to see this patient again in the future if found appropriate by the physician. Thank you! Feliciano Layne, PT, Cert MDT, OCS Balance/Gait/Functional tests Balance/Special Test Scores Lower Extremity Functional Score: 33
== END 2025-01-09 19:00 | disposition home or self-care (01) ==
LOC: PT 10:00
PROVIDERS: PCP Student in an Organized Health Care Education/Training Program; Referring Provider Orthopaedic Surgery Sports Medicine; Visit Provider Orthopaedic Surgery Sports Medicine
DX: S76.312D Strain of muscle, fascia and tendon of the posterior muscle group at thigh level, left thigh, subsequent encounter (principal)
CPT/HCPCS: 97110; 97140; 97162; 97530

== ENCOUNTER → 2025-02-18 | Outpatient (CLI) | payer OTHER, MEDICAID, SELFPAY ==
--- NOTE | 2025-02-18 10:27 | MRI_ITS ---
PROCEDURE: LOWER EXT/NO JT/W/O 02/18/2025 REASON FOR EXAM: SOFT TISSUE PROMINENCE POST OP HAMSTRING REPAIR TECHNIQUE: LOWER EXT/NO JT/W/O Multiplanar and multisequence images were obtained without IV contrast administration. COMPARISON: COMPARISON : September 13, 2024 FINDINGS: Bone Marrow: Suture anchors are noted in the ischium. There is complete tear of the hamstring origins from the ischium with an associated fluid collection and bare appearance of the posterior ischial tuberosity. The fluid collection extends to the subcutaneous tissues and skin marker measuring 9.8 by 3.2 by 2.2 cm. There is 3.5 cm retraction of the semimembranosus and biceps femoris origins, coronal image 14 with intramuscular edema present. There is normal marrow signal in the femur. Neurovascular structures are unremarkable. Effusion: There is no effusion of the hip. There is no free fluid in the pelvis. MRI/Lower Ext/No Jt/w/o IMPRESSION: Suture anchors are noted in the ischium. There is complete tear of the hamstring origins from the ischium with an associ ated fluid collection and bare appearance of the posterior ischial tuberosity. The fluid collection extends to the subcutaneous tissues and skin marker measuring 9.8 by 3.2 by 2.2 cm. There is 3.5 cm retraction of the semimembranosus and biceps femoris origins, c oronal image with intramuscular edema present. Reading Location: [facility]
== END | disposition home or self-care (01) ==
LOC: MRI 10:26
PROVIDERS: PCP Student in an Organized Health Care Education/Training Program; Referring Provider Orthopaedic Surgery Sports Medicine; Visit Provider Orthopaedic Surgery Sports Medicine
DX: S76.312A Strain of muscle, fascia and tendon of the posterior muscle group at thigh level, left thigh, initial encounter (principal)
CPT/HCPCS: 73718

== ENCOUNTER → 2025-07-30 | Outpatient (CLI) | payer OTHER, MEDICAID, SELFPAY ==
--- NOTE | 2025-07-30 13:54 | MRI_ITS ---
PROCEDURE: SPINE CERVICAL (ROUTINE) 07/30/2025 REASON FOR EXAM: Cervical spondylosis TECHNIQUE: Procedure Code: MRISPC Modality: MR Procedure: SPINE CERVICAL (ROUTINE) Multiplanar and multisequence images were obtained without IV contrast administration. COMPARISON: None available. FINDINGS: The visualized posterior fossa contents appear within normal limits. Reversal of the cervical lordosis. The atlantooccipital and atlantoaxial joints appear normally aligned. The cervical vertebral bodies are normal in height. Mild C2-C3 and C3-C4 anterolisthesis. No bone marrow replacing lesion in the cervical spine. Multilevel disc desiccation and intervertebral disc space height loss. There is no evidence of cervical spinal cord signal abnormality. C2-C3: No significant spinal canal stenosis. Facet arthrosis and uncovertebral spurring contribute to mild left neural foraminal narrowing. Intact right neural foramen. C3-C4: Posterior disc osteophyte complex, bilateral facet arthrosis, and uncovertebral spurring. Mild spinal canal stenosis. Moderate bilateral neural foraminal narrowing. C4-C5: Posterior disc osteophyte complex, bilateral facet arthrosis, and uncovertebral spurring. Mild spinal canal stenosis. Mild right and moderate left neural foraminal narrowing. C5-C6: Posterior disc osteophyte complex, bilateral facet arthrosis, and uncovertebral spurring. [id number] spinal canal stenosis with indentation of the ventral cord. Mild right and moderate left neural foraminal narrowing. C6-C7: Posterior disc osteophyte complex, bilateral facet arthrosis, and uncovertebral spurring. Mild spinal canal stenosis. [id number] right and [id number] left neural foraminal narrowing. C7-T1: No significant spinal canal stenosis or neural foraminal narrowing. Right thyroid nodules, the largest measuring up to 1.1 cm. MRI/Spine Cervical (Routine) IMPRESSION: 1. Cervical spondylosis without high-grade spinal canal stenosis. At C6-C7, mo [id number] left neural foraminal stenosis predominantly secondary to facet and uncovertebral arthrosis. Additional multi ple levels of moderate neural foraminal stenosis. 2. 1.1 cm right thyroid nodule. Recommend thyroid ultrasound for further evalu ation. Reading Location: [id number]
--- NOTE | 2025-07-30 14:25 | MRI_ITS ---
PROCEDURE: SPINE LUMBAR (ROUTINE) 07/30/2025 REASON FOR EXAM: Lumbar spondylosis TECHNIQUE: Procedure Code: MRISPL Modality: MR Procedure: SPINE LUMBAR (ROUTINE) COMPARISON: None available. FINDINGS: For the purposes of this report, the most caudal rectangular vertebral body will be designated L5. The next most caudal trapezoidal shaped vertebral body will be designated S1. The intervening disc at the lumbosacral angle is designated L5-S1. Mild straightening of the lumbar spine. The lumbar vertebral bodies are normal in height. Grade 1 L3-L4 anterolisthesis. No bone marrow replacing lesion in the lumbar spine. Multilevel disc desiccation. Marked intervertebral disc space height loss at L3-L4 and L4-L5. There is no evidence of signal abnormality in the imaged distal spinal cord. The conus medullaris terminates at the level of L1. There is redundancy of the cauda equina nerve roots below the level of L3-L4. T11-T12: No significant spinal canal stenosis neural foraminal narrowing. Type 1 Modic endplate changes T12-L1: No significant spinal canal stenosis or neural foraminal narrowing. L1-L2: No significant spinal canal stenosis or neural foraminal narrowing. L2-L3: Disc bulge contributes to mild spinal canal stenosis. No significant neural foraminal narrowing. L3-L4: Uncovering of the disc, bilateral facet arthrosis, and ligamentum flavum hypertrophy. Severe spinal canal stenosis and subarticular zone narrowing. There is crowding of the descending nerve roots. Severe right and mild left neural foraminal narrowing. L4-L5: Disc bulge, bilateral facet arthrosis, and ligamentum flavum hypertrophy. Mild spinal canal stenosis. Mild right and [id number] left neural foraminal narrowing. Type 2 Modic endplate changes. L5-S1: No significant spinal canal stenosis neural foraminal narrowing. Mild fatty atrophy of the posterior paraspinal muscles. Subcentimeter hepatic cyst. MRI/Spine Lumbar (Routine) IMPRESSION: Lumbar spondylosis most marked at L3-L4 where there is severe spinal canal sten osis and severe right neural foraminal stenosis. Additional details as discussed above. Reading Location: [id number]
== END | disposition home or self-care (01) ==
PROVIDERS: PCP Student in an Organized Health Care Education/Training Program; Referring Provider Anesthesiology; Visit Provider Anesthesiology
DX: M47.812 Spondylosis without myelopathy or radiculopathy, cervical region (principal); M47.816 Spondylosis without myelopathy or radiculopathy, lumbar region
CPT/HCPCS: 72141; 72148